=== PATIENT | female | born 2000 | race Caucasian/White ===

== ENCOUNTER 2020-08-10 12:19 | Inpatient (IN) ==
[2020-08-10] MEDS ORDERED: MoRPHine SULFATE 4 MG/ML 1 ML CARP\\VIAL IV STA (13:18)
[2020-08-10] MEDS ORDERED: fentaNYL citrate 100 MCG/2 ML VIAL IV PRN (13:18)
[2020-08-10] MEDS ORDERED: SODIUM CHLORIDE 0.9% 1000ML 1,000 ML IV STA (13:18)
[2020-08-10] MEDS ORDERED: ONDANSETRON INJ 2 MG/ML 2 ML VIAL IV STA (13:27)
--- NOTE | 2020-08-10 13:27 | Emergency Department Note ---
Impression & Plan Cholelithiasis, Abdominal pain ED Provider Note CHIEF COMPLAINT: Nausea, vomiting, upper abdominal pain HISTORY OF PRESENTING ILLNESS: This is a 19-year-old female who presents to the emergency department from the [facility] with complaint of upper abdominal pain, nausea and vomiting that started about 4 AM this morning. She states the pain is across the top of her abdomen, it is severe and constant, and she rates the pain 9/10. She notes that she was vomiting up bile, no blood. She tried to drink tianna jaylon and eat some crackers and she vomited this up. She was given Zofran this morning but this did not help her symptoms. The patient has been admitted at [facility] for suicidal attempt and self harming behavior since August 03. She denies any suicidal thoughts currently and she denies taking any medication besides what has been given to her by staff. She was not given anything for pain. She does note that she has a history of gallstones and gallbladder sludge that was diagnosed a few months ago. She states she is scheduled next week to see someone about this "to see if my gallbladder needs to come out." She denies any history of abdominal surgeries and denies being p regnant. She denies any fevers or chills, chest pain, chest tightness, shortness of breath, back pain, urinary symptoms, dizziness or syncope. REVIEW OF SYSTEMS: A complete 10 point review of systems was reviewed with the patient with pertinent positives and negatives as per history of present ill ness. All else were negative. PAST MEDICAL HISTORY: Hypertension, depression, POTS, anemia, GERD, seasonal allergies, suicidal and self-injurious behaviors, morbid obesity SOCIAL HISTORY: Lives at home, currently admitted at the [facility], she denies tobacco use ALLERGIES: Reviewed in chart and with the patient PHYSICAL EXAM: CONSTITUTIONAL: Pleasant and cooperative. Nontoxic-appearing and in no acute distress, but appears to feel unwell. Mildly dehydrated. HEENT: Normocephalic, atraumatic. PERRL, EOMI. Pharynx normal. Tacky mucous membranes. NECK: Supple, full active range of motion without discomfort. RESPIRATORY: Clear to auscultation bilaterally with no wheezing, crackles, rhonchi or stridor. Equal expansion bilaterally. CARDIOVASCULAR: Regular rate and rhythm with no murmurs, rubs or gallops. Normal peripheral perfusion. No edema. GASTROINTESTINAL: Tender to palpation in the epigastric and bilateral upper quadrants, no rebound tenderness or guarding, no definite Armendariz sign. Abdomen is otherwise nontender, soft and nondistended, obese abdomen. No palpable masses or HSM. Bowel sounds present in all quadrants. No CVA tenderness bilaterally. MUSCULOSKELETAL: Full range of motion of all joints without discomfort. INTEGUMENTARY: No rash or other significant dermatologic conditions noted. NEUROLOGIC: Alert and oriented X 4 with normal affect. Normal strength and sensation in all 4 extremities. Normal speech. Normal gait observed. ED COURSE AND MEDICAL DECISION MAKING: CC: Patient presenting with complaint of upper abdominal pain, nausea and vomiting DIFFERENTIAL DIAGNOSIS: Includes, but not limited to cholecystitis, cholelithiasis, choledocholithiasis, gastritis, peptic ulcer disease, GERD, pancreatitis, ectopic , UTI, pyelonephritis, ureteral stone, small bowel obstruction, inflammatory bowel disease, hernia, volvulus, constipation, as well as other pathologies. INTERPRETATION OF LABS: Leukocytosis, no anemia, normal platelets, no signific ant electrolyte abnormalities, normal renal function, elevated AST and ALT, T bili normal, alk phos normal, normal lipase. Serum negative. UA shows 4+ ketones and appears to be a contaminated specimen, urine culture pending. EKG: Shows normal sinus rhythm with a rate of 79 bpm, normal intervals, no ST elevation or depression, no ectopy,no significant changes when compared to previous EKG from 08/10/2020 by my interpretation. MEDICATION RECONCILIATION: I attest that I have personally reviewed the patient's current medication list. INITIAL VITAL SIGNS REVIEW: I reviewed the patient's initial vital signs and interpret them as follows: T: Afebrile; BP: Mildly hypertensive; HR: Within normal limits; RR: Within normal limits; Pulse Ox: Within normal limits on room air. MDM SUMMARY: Patient was evaluated at bedside, history and physical exam performed. Patient is alert and oriented, in no acute distress, but does appear to be uncomfortable and feel unwell. She complains of nausea but is not actively vomiting. She is afebrile and nontoxic-appearing, but does appear to be dehydrated clinically. She is tender to palpation in the entire upper abdomen, no apparent Armendariz's sign. No acute abdomen. Cardiac monitoring: An order was placed for continuous cardiac monitoring. The monitor shows a rate of 78 bpm with normal sinus rhythm. Review of the patient's notes from [facility], noting that she does also have a history of elevated LFTs and has and upcoming appointment to see gastroenterology for this, however she is not sure if she will be able to make it to the appointment because she is still inpatient at [facility]. Orders were placed for labs, serum , UA, IV fluid bolus for hydration, IV morphine for pain, IV Zofran for nausea, right upper quadrant ultrasound to evaluate for abdominal pain and nausea/vomiting. Patient discussed with Dr. Esteves, who agrees with my assessment, plan, and disposition. Labs and imaging reviewed, labs are notable for leukocytosis and elevated LFTs. Normal lipase. She is not . No definite UTI. The patient was reassessed, she continues to complain of pain and nausea. Additional orders were placed for IV Pepcid, IV Reglan, and IV Benadryl. Gallbladder ultrasound shows mildly distended gallbladder with a suspected calculus in the region of the gallbladder neck. There is no evidence of acute cholecystitis and no biliary ductal dilatation. Hepatomegaly and hepatic steatosis also noted. Patient reassessed multiple times throughout ED stay, she has remained hemodynamically stable and afebrile, she reports her pain and nausea are improved after the second set of medications, but she is still uncomfortable. Given the ultrasound findings and concern for developing gallbladder disease, I did feel the patient would benefit from admission for further evaluation of this such as a HIDA scan. [facility] the patient for admission. The patient was updated on all results and plan for admission, she was agreeable to this plan. The patient was stable at time of admission. The chart was completed utilizing [employer] voice recognition software. Grammatical errors, random word insertions, pronoun errors, and incomplete sentences are an occasional consequence of this system due to software limitations, ambient noise, and hardware issues. Any formal questions or concerns about the content, text, or information contained within the body of this dictation should be directly addressed to the nurse practitioner for clarification. Past Med/Surg History Medical History (Updated 08/10/20 @ 20:49 by ARLINE Tompkins) Depression Hypertension Morbid obesity Social History Smoking Status: Never smoker Preferred Language: French Feels Safe at Home: Yes Allergies Allergies Allergy/AdvReac Type Severity Reaction Status Date / Time nut - unspecified Allergy Severe Hives Unverified 08/10/20 13:25 mirtazapine [From Remeron] AdvReac Severe angry/viole Unverified 08/10/20 13:25 nt gabapentin AdvReac suicidal Unverified 08/10/20 13:25 Home Meds Home Medications Medication Instructions Recorded Confirmed ascorbic acid (vitamin C) [Vitamin 500 mg PO BID 08/10/20 08/10/20 C] atenolol [Tenormin] 100 mg PO QAM 08/10/20 08/10/20 diazepam [Valium] 5 mg PO BID 08/10/20 08/10/20 duloxetine [Cymbalta] 80 mg PO QAM 08/10/20 08/10/20 ferrous sulfate 325 mg PO QAM 08/10/20 08/10/20 fluticasone propionate [Flonase 2 spray INTRANASAL QAM 08/10/20 08/10/20 Allergy Relief] magnesium oxide 400 mg PO QAM 08/10/20 08/10/20 ondansetron 4 mg PO Q6H PRN 08/10/20 08/10/20 quetiapine [Seroquel] 50 mg PO QAM 08/10/20 08/10/20 quetiapine [Seroquel] 200 mg PO HS 08/10/20 08/10/20 Results & Data (ED) Vital Signs Vital Signs - 24 hr 08/10/20 12:22 08/10/20 13:37 08/10/20 13:42 Temperature 35.8 C L 36.4 C L 36.6 C Temperature Source Temporal Artery Scan Oral Oral Pulse Rate 73 Pulse Rate [Apical] 83 Pulse Rate from SpO2 Sensor Pulse Rhythm [Apical] Regular Pulse Strength [Apical] Normal Respiratory Rate 20 22 Respiratory Effort / Characteristics Non-Labored Spontaneous Non-Labored Respiratory Depth Normal Normal Respiratory Pattern Regular Regular Blood Pressure 139/86 Blood Pressure [Left Arm] 142/92 H Blood Pressure Mean 103 Blood Pressure Mean [Left Arm] 108 Blood Pressure Position [Left Arm] Sitting Pulse Oximetry 98 98 97 Oxygen Delivery Method Room Air Room Air Room Air Sepsis Recent Fever Within 48 Hours No Sepsis New/Unexplained Change in Mental Status No Sepsis Action Taken by Nursing No Action Required 08/10/20 14:30 08/10/20 14:31 08/10/20 15:34 Temperature Temperature Source Pulse Rate 92 H 93 H Pulse Rate [Apical] 91 H Pulse Rate from SpO2 Sensor 92 H 90 Pulse Rhythm [Apical] Pulse Strength [Apical] Respiratory Rate 17 21 21 Respiratory Effort / Characteristics Respiratory Depth Respiratory Pattern Blood Pressure 185/89 H 136/90 Blood Pressure [Left Arm] 185/89 H Blood Pressure Mean 121 105 Blood Pressure Mean [Left Arm] 121 Blood Pressure Position [Left Arm] Pulse Oximetry 98 98 98 Oxygen Delivery Method Room Air Sepsis Recent Fever Within 48 Hours Sepsis New/Unexplained Change in Mental Status Sepsis Action Taken by Nursing 08/10/20 16:00 08/10/20 16:30 08/10/20 17:00 Temperature Temperature Source Pulse Rate 96 H 85 93 H Pulse Rate [Apical] Pulse Rate from SpO2 Sensor 95 H 85 96 H Pulse Rhythm [Apical] Pulse Strength [Apical] Respiratory Rate 24 23 22 Respiratory Effort / Characteristics Respiratory Depth Respiratory Pattern Blood Pressure 133/89 147/85 H 153/112 H Blood Pressure [Left Arm] Blood Pressure Mean 103 105 125 Blood Pressure Mean [Left Arm] Blood Pressure Position [Left Arm] Pulse Oximetry 97 98 98 Oxygen Delivery Method Room Air Sepsis Recent Fever Within 48 Hours Sepsis New/Unexplained Change in Mental Status Sepsis Action Taken by Nursing Laboratory Data Result diagrams: 08/10/20 13:24 08/10/20 13:24 Lab Results 08/10/20 08/10/20 08/10/20 Range/Units 13:24 13:24 13:24 WBC 12.90 H (4.8-10.8) K/uL RBC 4.61 (4.2-5.4) M/uL Hgb 13.8 (12.0-16.0) g/dL Hct 41.8 (37-47) % MCV 90.7 (80-100) fL MCH 29.9 (25-34) pg MCHC 33.0 (32-36) g/dL RDW Std Deviation 46.5 H (36.4-46.3) fL RDW Coeff of Jihan 14.0 (11.5-14.5) % Plt Count 405 H (130-400) K/uL MPV 11.2 H (7.4-10.4) fL Immature Gran % (Auto) 0.2 % Neut % (Auto) 81.5 % Lymph % (Auto) 11.6 % [place] % (Auto) 6.3 % Eos % (Auto) 0.2 % Baso % (Auto) 0.2 % Neut # (Auto) 10.53 H (1.4-6.5) K/uL Lymph # (Auto) 1.49 (1.2-3.4) K/uL [place] # (Auto) 0.81 H (0.11-0.59) K/uL Eos # (Auto) 0.02 (0-0.5) K/uL Baso # (Auto) 0.02 (0-0.2) K/uL Immature Gran # (Auto) 0.03 H (0.00-0.02) K/uL Sodium 142 (136-145) mmol/L Potassium 3.6 (3.5-5.1) mmol/L Chloride 109 H (98-107) mmol/L Carbon Dioxide 24 (21-32) mmol/L Anion Gap 9.0 (3-11) BUN 8 (7-18) mg/dl Creatinine 0.71 (0.6-1.2) mg/dl Est Cr Clr Drug Dosing Not Reportable Est GFR ( Amer) 142.1 ml/min Est GFR (Non-Af Amer) 122.6 ml/min BUN/Creatinine Ratio 10.9 (10-20) Glucose 109 H (70-99) mg/dl Calcium 10.1 (8.5-10.1) mg/dl Total Bilirubin 0.7 (0.2-1) mg/dl AST 91 H (15-37) U/L ALT 160 H (12-78) U/L Alkaline Phosphatase 112 (45-117) U/L Total Protein 8.5 H (6.4-8.2) gm/dl Albumin 3.5 (3.4-5.0) gm/dl Globulin 5.0 H (2.5-4.0) gm/dl Albumin/Globulin Ratio 0.7 L (0.9-2) Lipase 80 (73-393) U/L HCG, Qual Negative (Negative) Urine Color Urine Appearance (Clear) Urine pH (4.5-7.5) Ur Specific [place] (1.000-1.030) Urine Protein (Negative) Urine Glucose (UA) (Negative) Urine Ketones (Negative) Urine Blood (Negative) Urine Nitrite (Negative) Urine Bilirubin (Negative) Urine Urobilinogen (Negative) Ur Leukocyte Esterase (Negative) Urine RBC (0-4) /hpf Urine WBC (0-5) /hpf Ur Epithelial Cells (0-5) /lpf Urine Bacteria (Negative) Urine Mucus (None Prsent) COVID-19 Eval Order SARS-CoV-2 (PCR) (Negative) 08/10/20 08/10/20 08/10/20 Range/Units 17:51 17:51 18:25 WBC (4.8-10.8) K/uL RBC (4.2-5.4) M/uL Hgb (12.0-16.0) g/dL Hct (37-47) % MCV (80-100) fL MCH (25-34) pg MCHC (32-36) g/dL RDW Std Deviation (36.4-46.3) fL RDW Coeff of Jihan (11.5-14.5) % Plt Count (130-400) K/uL MPV (7.4-10.4) fL Immature Gran % (Auto) % Neut % (Auto) % Lymph % (Auto) % [place] % (Auto) % Eos % (Auto) % Baso % (Auto) % Neut # (Auto) (1.4-6.5) K/uL Lymph # (Auto) (1.2-3.4) K/uL [place] # (Auto) (0.11-0.59) K/uL Eos # (Auto) (0-0.5) K/uL Baso # (Auto) (0-0.2) K/uL Immature Gran # (Auto) (0.00-0.02) K/uL Sodium (136-145) mmol/L Potassium (3.5-5.1) mmol/L Chloride (98-107) mmol/L Carbon Dioxide (21-32) mmol/L Anion Gap (3-11) BUN (7-18) mg/dl Creatinine (0.6-1.2) mg/dl Est Cr Clr Drug Dosing Est GFR ( Amer) ml/min Est GFR (Non-Af Amer) ml/min BUN/Creatinine Ratio (10-20) Glucose (70-99) mg/dl Calcium (8.5-10.1) mg/dl Total Bilirubin (0.2-1) mg/dl AST (15-37) U/L ALT (12-78) U/L Alkaline Phosphatase (45-117) U/L Total Protein (6.4-8.2) gm/dl Albumin (3.4-5.0) gm/dl Globulin (2.5-4.0) gm/dl Albumin/Globulin Ratio (0.9-2) Lipase (73-393) U/L HCG, Qual (Negative) Urine Color Yellow Urine Appearance Clear (Clear) Urine pH 5.5 (4.5-7.5) Ur Specific [place] >= 1.030 (1.000-1.030) Urine Protein Trace H (Negative) Urine Glucose (UA) Negative (Negative) Urine Ketones 4+ H (Negative) Urine Blood 3+ H (Negative) Urine Nitrite Negative (Negative) Urine Bilirubin Negative (Negative) Urine Urobilinogen Negative (Negative) Ur Leukocyte Esterase Negative (Negative) Urine RBC >30 H (0-4) /hpf Urine WBC >30 H (0-5) /hpf Ur Epithelial Cells >30 H (0-5) /lpf Urine Bacteria 2+ H (Negative) Urine Mucus Present A (None Prsent) COVID-19 Eval Order Covid19 at [facility] SARS-CoV-2 (PCR) NEGATIVE (Negative) Administered Medications Discontinued Medications Diphenhydramine HCl (Diphenhydramine 50 Mg/Ml Vial) 50 mg IV NOW STA Stop: 08/10/20 15:28 Last Admin: 08/10/20 15:33 Dose: 50 mg Documented by: [id number] Sodium Chloride (Nss 1000ml) 1,000 mls @ 999 mls/hr IV .Q1H1M STA Stop: 08/10/20 14:18 Last Infusion: 08/10/20 14:35 Dose: 0 mls/hr Documented by: [id number] Admin: 08/10/20 13:34 Dose: 999 mls/hr Documented by: [id number] Famotidine (Pepcid 20mg Iv Push) 20 mg in 5 mls @ 2.5 mls/min IV NOW STA Stop: 08/10/20 14:51 Last Admin: 08/10/20 15:32 Dose: 2.5 mls/min Documented by: [id number] Metoclopramide HCl (Metoclopramide Hcl Inj 5 Mg/Ml 2 Ml Vial) 10 mg IV NOW STA Stop: 08/10/20 15:28 Last Admin: 08/10/20 15:32 Dose: 10 mg Documented by: [id number] Morphine Sulfate (Morphine Sulfate 4 Mg/Ml 1 Ml Carp\\Vial) 4 mg IV NOW STA Stop: 08/10/20 13:19 Last Admin: 08/10/20 13:34 Dose: 4 mg Documented by: [id number] Ondansetron HCl (Ondansetron Inj 2 Mg/Ml 2 Ml Vial) 4 mg IV NOW STA Stop: 08/10/20 13:28 Last Admin: 08/10/20 13:34 Dose: 4 mg Documented by: [id number] Imaging Data Radiologist's Impression: Gallbladder Ultrasound 08/10/20 13:18 ULTRASOUND RIGHT UPPER QUADRANT ABDOMEN CLINICAL HISTORY: Upper abdominal pain. COMPARISON STUDY: No priors. TECHNIQUE: Real-time, grayscale, and color flow sonography of the right upper quadrant of the abdomen was performed. Images are reviewed in the transverse and longitudinal planes. FINDINGS: Liver: The liver is enlarged and demonstrates heterogeneously increased echotexture consistent with hepatic steatosis. Note that this degrades acoustic penetration of the liver. Fatty sparing is seen adjacent to gallbladder fossa. There is no intrahepatic biliary ductal dilatation. The main portal vein is patent. Gallbladder: A shadowing calculus is seen in the region the gallbladder neck. The gallbladder is mildly distended. There is no gallbladder wall thickening or pericholecystic fluid. A sonographic Armendariz's sign is reportedly absent. The common bile duct measures 0.4 cm in diameter. Pancreas: Visualized portions of the pancreatic head and body are normal in appearance. Right kidney: Survey images of the right kidney demonstrate normal size and echotexture. There is no hydronephrosis. Ascites: None. IMPRESSION: 1. The gallbladder is mildly distended and there is a shadowing calculus in the region of the gallbladder neck. There is no definitive sonographic evidence of acute cholecystitis at this time. If there is strong clinical concern for acute cholecystitis a nuclear hepatobiliary scan could be considered. 2. There is no intra or extrahepatic biliary ductal dilatation. 3. Hepatomegaly and hepatic steatosis. ACT 112: Negative or not required by law. Electronically signed by: Uriel Jaime M.D. 08/10/2020 3:30 PM Discharge Plan Visit Data Chief Complaint: Vomiting Stated Complaint: ABDOMINAL PAIN, VOMITING, NAUSEA ED Provider: Lexa Esteves ED Midlevel Provider: Sonal Sterling Discharge Problem: Cholelithiasis, Abdominal pain Patient Disposition: Admitted As Inpatient Condition: Good Forms Stand Alone Forms: My [facility] Prescriptions Prescriptions: No Action quetiapine [Seroquel] 200 mg Tablet 200 mg PO HS RF: 0 atenolol [Tenormin] 25 mg Tablet 100 mg PO QAM RF: 0 ascorbic acid (vitamin C) [Vitamin C] 500 mg Tablet 500 mg PO BID RF: 0 ferrous sulfate 325 mg (65 mg iron) Tablet,Delayed Release (Dr/Ec) 325 mg PO QAM RF: 0 ondansetron 4 mg Tablet,Disintegrating 4 mg PO Q6H PRN (Reason: Nausea And Vomiting) RF: 0 fluticasone propionate [Flonase Allergy Relief] 50 mcg/actuation [place],S uspension 2 spray INTRANASAL QAM RF: 0 diazepam [Valium] 5 mg Tablet 5 mg PO BID RF: 0 duloxetine [Cymbalta] 20 mg Capsule,Delayed Release(Dr/Ec) 80 mg PO QAM RF: 0 quetiapine [Seroquel] 50 mg Tablet 50 mg PO QAM RF: 0 magnesium oxide 400 mg magnesium Tablet 400 mg PO QAM RF: 0 Referrals Referrals: Selam Casillas [Primary Care Provider] - Discharge Problem: Cholelithiasis Qualifiers: Cholelithiasis location: gallbladder Cholecystitis presence: without cholecystitis Biliary obstruction: without biliary obstruction Qualified Cod e(s): K80.20 - Calculus of gallbladder without cholecystitis without obstruction Abdominal pain Qualifiers: Abdominal location: epigastric Qualified Code(s): R10.13 - Epigastric pain
[2020-08-10 13:34] LABS: Basophils # (auto) 0.02 K/uL (0-0.2); Basophils % (auto) 0.2 %; Eosinophils # (auto) 0.02 K/uL (0-0.5); Eosinophils % (auto) 0.2 %; Hematocrit (blood only) 41.8 % (37-47); Hemoglobin 13.8 g/dL (12.0-16.0); Immature Granulocytes # (auto) 0.03 K/uL (0.00-0.02); Immature Granulocytes % (auto) 0.2 %; Lymphocytes # (auto) 1.49 K/uL (1.2-3.4); Lymphocytes % (auto) 11.6 %; Mean Corpuscular Hemoglobin 29.9 pg (25-34); Mean Corpuscular Volume 90.7 fL (80-100); Mean Platelet Volume 11.2 fL (7.4-10.4); Monocytes # (auto) 0.81 K/uL (0.11-0.59); Monocytes % (auto) 6.3 %; Neutrophils # (auto) 10.53 K/uL (1.4-6.5); Neutrophils % (auto) 81.5 %; Platelet Count 405 K/uL (130-400); RDW Standard Deviation 46.5 fL (36.4-46.3); Red Blood Count 4.61 M/uL (4.2-5.4)
[2020-08-10 13:56] LABS: Alanine Aminotransferase 160 U/L (12-78); Albumin Level 3.5 gm/dl (3.4-5.0); Aspartate Aminotransferase 91 U/L (15-37); BUN Creatinine Ratio 10.9 (10-20); Blood Urea Nitrogen 8 mg/dl (7-18); Calcium 10.1 mg/dl (8.5-10.1); Carbon Dioxide 24 mmol/L (21-32); Chloride 109 mmol/L (98-107); Est GFR (African American) 142.1 ml/min; Est GFR (Non-African American) 122.6 ml/min; Glucose 109 mg/dl (70-99); Lipase 80 U/L (73-393); Potassium 3.6 mmol/L (3.5-5.1); Sodium 142 mmol/L (136-145)
[2020-08-10 13:59] LABS: Albumin Globulin Ratio 0.7 (0.9-2); Alkaline Phosphatase 112 U/L (45-117); Bilirubin,Total 0.7 mg/dl (0.2-1); Total Protein 8.5 gm/dl (6.4-8.2)
[2020-08-10 14:12] LABS: Pregnancy Test, Serum Negative (Negative)
[2020-08-10] MEDS ORDERED: FAMOTIDINE 20MG IV PUSH 20 MG/5 ML SYR IV STA (14:50)
[2020-08-10] MEDS ORDERED: METOCLOPRAMIDE HCL INJ 5 MG/ML 2 ML VIAL IV STA (15:27)
[2020-08-10] MEDS ORDERED: diphenhydrAMINE 50 MG/ML VIAL IV STA (15:27)
--- NOTE | 2020-08-10 15:32 | Electrocardiogram Report ---
Test Reason : Blood Pressure : / mmHG Vent. Rate : 079 BPM Atrial Rate : 079 BPM P-R Int : 172 ms QRS Dur : 076 ms QT Int : 390 ms P-R-T Axes : 006 015 021 degrees QTc Int : 447 ms Normal sinus rhythm Nonspecific T wave abnormality Abnormal ECG When compared with ECG of 10-AUG-2020 13:36, (unconfirmed) No significant change was found Confirmed by Kevin Kam ([id number]) on 08/10/2020 3:31:55 PM Referred By: Confirmed By:Kevin Kam
--- NOTE | 2020-08-10 15:32 | Ultrasound Report ---
ULTRASOUND RIGHT UPPER QUADRANT ABDOMEN CLINICAL HISTORY: Upper abdominal pain. COMPARISON STUDY: No priors. TECHNIQUE: Real-time, grayscale, and color flow sonography of the right upper quadrant of the abdomen was performed. Images are reviewed in the transverse and longitudinal planes. FINDINGS: Liver: The liver is enlarged and demonstrates heterogeneously increased echotexture consistent with h epatic steatosis. Note that this degrades acoustic penetration of the liver. Fatty sparing is seen ad jacent to gallbladder fossa. There is no intrahepatic biliary ductal dilatation. The main portal vein is patent. Gallbladder: A shadowing calculus is seen in the region the gallbladder neck. The gallbladder is mild ly distended. There is no gallbladder wall thickening or pericholecystic fluid. A sonographic Armendariz' s sign is reportedly absent. The common bile duct measures 0.4 cm in diameter. Pancreas: Visualized portions of the pancreatic head and body are normal in appearance. Right kidney: Survey images of the right kidney demonstrate normal size and echotexture. There is no hydronephrosis. Ascites: None. IMPRESSION: 1. The gallbladder is mildly distended and there is a shadowing calculus in the region of the gallbla dder neck. There is no definitive sonographic evidence of acute cholecystitis at this time. If there is strong clinical concern for acute cholecystitis a nuclear hepatobiliary scan could be considered. 2. There is no intra or extrahepatic biliary ductal dilatation. 3. Hepatomegaly and hepatic steatosis. ACT 112: Negative or not required by law. Electronically signed by: Uriel Jaime M.D. 08/10/2020 3:30 PM
--- NOTE | 2020-08-10 16:58 | History & Physical Report ---
Date of Service August 10, 2020 Assessment & Plan (1) Cholelithiasis: Patient's history, lab work, and ultrasound suggest possible cholecystitis. Patient does have a calculus in her gallbladder neck with some distention on ultrasound Place patient in nonmonitored observation Will order a HIDA scan Will make n.p.o. tonight, consider advancing diet slowly depending on course Consult general surgery for evaluation, may require elective cholecystectomy depending on results (2) Hypertension: Patient's blood pressure is mildly elevated Continue atenolol as per outpatient dosing (3) Depression: Patient is on multiple psych meds, including Seroquel, Cymbalta, and Valium. We will continue these as inpatient Patient at this time seems calm with no acute psychiatric issues. Per exam, I suspect she has a history of self-harm. I will consider psych consultation if patient has acute psychiatric issues during her hospitalization here (4) Morbid obesity: History of Present Illness Chief Complaint: Abdominal pain Primary Care Provider: Selam Casillas This is a 19-year-old female with past medical history of hypertension, morbid obesity, depression with a suicide attempt that presents from the [facility] complaining of abdominal pain. Patient is decent historian, and is accompanied by a traveling sales representative from the [facility]. Patient tells me that she has had abdominal pain all day. This is bilateral upper quadrants, left worse than right. She is also had nausea vomiting and has not been able to tolerate any food or liquids since approximate 4 AM. She denies any chest pain or shortness of breath. She has had no further vomiting since she stopped trying to take p.o.'s. She was given Zofran earlier which did not help. Per documentation, patient had a history of a gallstone/gallbladder sludge and was previously scheduled to see someone for elective cholecystectomy but this not occur secondary to her psychiatric issues. At time of evaluation, the patient is a very flat affect does not appear to be in any distress. Allergies Allergy/AdvReac Type Severity Reaction Status Date / Time nut - unspecified Allergy Severe Hives Unverified 08/10/20 13:25 mirtazapine [From Remeron] AdvReac Severe angry/viole Unverified 08/10/20 13:25 nt gabapentin AdvReac suicidal Unverified 08/10/20 13:25 Home Medications Medication Instructions Recorded Confirmed Type ascorbic acid (vitamin C) [Vitamin 500 mg PO BID 08/10/20 08/10/20 History C] atenolol [Tenormin] 100 mg PO QAM 08/10/20 08/10/20 History diazepam [Valium] 5 mg PO BID 08/10/20 08/10/20 History duloxetine [Cymbalta] 80 mg PO QAM 08/10/20 08/10/20 History ferrous sulfate 325 mg PO QAM 08/10/20 08/10/20 History fluticasone propionate [Flonase 2 spray INTRANASAL QAM 08/10/20 08/10/20 History Allergy Relief] magnesium oxide 400 mg PO QAM 08/10/20 08/10/20 History ondansetron 4 mg PO Q6H PRN 08/10/20 08/10/20 History quetiapine [Seroquel] 50 mg PO QAM 08/10/20 08/10/20 History quetiapine [Seroquel] 200 mg PO HS 08/10/20 08/10/20 History Past Med/Surg History Medical History (Updated 08/10/20 @ 17:03 by Blas Mauro DO) Depression Hypertension Morbid obesity Social History Smoking Status: Never smoker Preferred Language: Armenian Feels Safe at Home: Yes Review of Systems Constitutional: + anorexia; no fever, no chills, no weakness, no weight loss and no weight gain Eyes: as per Subjective / HPI Respiratory: no cough, no chest congestion, no dyspnea and no dyspnea on exertion Cardiovascular: no chest pain, no orthopnea, no palpitations, no lightheadedness and no edema Gastrointestinal: + abdominal pain, + nausea and + vomiting; no heartburn, no coffee ground emesis, no hematemesis, no constipation and no diarrhea/loose stools Genitourinary: no dysuria, no difficulty urinating, no urinary frequency, no urinary hesitancy, no urinary urgency and no flank pain Musculoskeletal: no back pain, no neck pain, no joint pain, no stiffness and no myalgia Integumentary: no rash Neurologic: no gait abnormality, no unsteadiness, no falls and no generalized weakness Physical Exam Constitutional: cooperative and comfortable; no acute distress Neck: trachea midline, no thyromegaly Respiratory: normal respiratory effort Auscultation: lungs clear to auscultation bilaterally; no crackles, no rales, no rhonchi and no wheezes Cardiovascular: Rate/Rhythm: regular rate and regular rhythm Heart Sounds: normal S1, normal S2 and + murmur Gastrointestinal (Abdomen): Inspection/Auscultation: abdomen normal to inspection and + hypoactive bowel sounds Percussion/Palpation: + abdomen tender (b/l upper quad, L>R. no r/g/r) and abdomen soft; no guarding, abdomen not rigid and no hepatosplenomegaly Skin: no rashes, warm and dry Multiple linear abrasions on upper arm, suggest self-harm. No fresh wounds, appear to been cared for at facility Results & Data Results & Data ([facility]) Vital Signs (Past 12 Hours) Vital Signs Temp Pulse Pulse Resp BP BP Pulse Ox 08/10/20 16:30 85 23 147/85 H 98 08/10/20 16:00 96 H 24 133/89 97 08/10/20 15:34 93 H 21 136/90 98 08/10/20 14:31 92 H 21 185/89 H 98 08/10/20 14:30 91 H 17 185/89 H 98 08/10/20 13:42 36.6 C 83 22 142/92 H 97 08/10/20 13:37 36.4 C L 98 08/10/20 12:22 35.8 C L 73 20 139/86 98 Diagnostic Findings ULTRASOUND RIGHT UPPER QUADRANT ABDOMEN CLINICAL HISTORY: Upper abdominal pain. COMPARISON STUDY: No priors. TECHNIQUE: Real-time, grayscale, and color flow sonography of the right upper quadrant of the abdomen was performed. Images are reviewed in the transverse and longitudinal planes. FINDINGS: Liver: The liver is enlarged and demonstrates heterogeneously increased echotexture consistent with hepatic steatosis. Note that this degrades acoustic penetration of the liver. Fatty sparing is seen adjacent to gallbladder fossa. There is no intrahepatic biliary ductal dilatation. The main portal vein is patent. Gallbladder: A shadowing calculus is seen in the region the gallbladder neck. The gallbladder is mildly distended. There is no gallbladder wall thickening or pericholecystic fluid. A sonographic Armendariz's sign is reportedly absent. The common bile duct measures 0.4 cm in diameter. Pancreas: Visualized portions of the pancreatic head and body are normal in appearance. Right kidney: Survey images of the right kidney demonstrate normal size and echotexture. There is no hydronephrosis. Ascites: None. IMPRESSION: 1. The gallbladder is mildly distended and there is a shadowing calculus in the region of the gallbladder neck. There is no definitive sonographic evidence of acute cholecystitis at this time. If there is strong clinical concern for acute cholecystitis a nuclear hepatobiliary scan could be considered. 2. There is no intra or extrahepatic biliary ductal dilatation. 3. Hepatomegaly and hepatic steatosis. PG Care Time/CCT Total # of Minutes Spent Total Time Spent with Patient: Total time spent is greater than 50% in coordination of care (as documented) at patient's floor/unit and/or counseling patient: Coding Level of Care Code 16723 OBS Care - Level 3 Diagnoses Cholelithiasis K80.20 Hypertension I10 Depression F32.9 Morbid obesity E66.01
[2020-08-10 18:46] LABS: Appearance Urine Clear (Clear); Bilirubin Urine Negative (Negative); Blood Urine 3+ (Negative); Color Urine Yellow; Glucose Urine UA Negative (Negative); Ketones Urine 4+ (Negative); Leukocyte Esterase Urine Negative (Negative); Nitrite Urine Negative (Negative); Protein Urine Trace (Negative); Specific Gravity Urine >= 1.030 (1.000-1.030); Urobilinogen Urine Negative (Negative); pH Urine 5.5 (4.5-7.5)
[2020-08-10 19:05] LABS: Bacteria Urine 2+ (Negative); Epithelial Cell Urine >30 /lpf (0-5); Mucus Urine Present (None Prsent); RBC Urine >30 /hpf (0-4); WBC Urine >30 /hpf (0-5)
[2020-08-10] MEDS ORDERED: ACETAMINOPHEN 325 MG TAB PO PRN (21:41)
[2020-08-10] MEDS ORDERED: ONDANSETRON INJ 2 MG/ML 2 ML VIAL IV PRN (21:41)
--- NOTE | 2020-08-10 23:07 | Surgery Consultation ---
Date of Consultation August 10, 2020 Assessment & Plan (1) Cholelithiasis: Patient is admitted on the hospitalist service. Current plans are as follows Analgesics are in place Antiemetics are in place Plans are in place to follow serial laboratories Patient will be kept on n.p.o. status for the present time Patient is noted to have likely gallstones on her gallbladder ultrasound. As there is no definitive evidence of cholecystitis on ultrasound a HIDA scan has been ordered and is currently pending Additional recommendations from surgery will be made once patient's HIDA scan has been completed Dr. Leong with plan above. Saw patient in her room she appears to be stable Does appear she has at least biliary colic and possible mild acute cholecystitis, HIDA scan is pending We discussed laparoscopic cholecystectomy and possible open cholecystectomy, she does wish to proceed when appropriate We will check her results of the HIDA scan and also medical work-up for her cardiac issues possible surgery tomorrow (2) POTS (postural orthostatic tachycardia syndrome): History of Present Illness Attending Physician: Blas Mauro, History of Present Illness This is a 19-year-old female who is currently receiving treatment at the [facility] secondary to a suicide attempt. Patient notes that she cut herself on her forearms with a sharp blade along with overdosing on Klonopin. Patient was transferred from the [facility] to [facility] emergency department secondary to abdominal pain. Patient notes that she has been having intermittent abdominal pain for several months located in the epigastric area and right upper quadrant. She feels as though the pain is worse after she eats a meal. Prior to her admission to the [facility] the patient notes that she did have plans to undergo cholecystectomy at [facility] in [place], [place], but postponed the surgery due to the Covid pandemic. Today the patient said that she developed similar abdominal pain that was greatest in the right upper quadrant. She noted the pain was more severe than it has been in the past and she had associated nausea vomiting. She denies any fevers, shakes, chills. She did not note any modifying factors of her pain and said the pain did not radiate. Because of her symptoms she was evaluated in the emergency department [facility]. In the emergency department [facility] the patient did have labs and imaging which I reviewed. A gallbladder ultrasound showed that she had a mildly distended gallbladder with shadowing consistent with gallstones in the region of the gallbladder neck. Gallbladder is noted to be mildly distended on this study, however there is no gallbladder wall thickening or pericholecystic fluid. There is no dilatation of the biliary ductal system. She has undergone labs including a CBC were white blood cell count was elevated 12.9. Her hemoglobin and hematocrit are normal. Platelet count was 405,000. Chemistry profile revealed her sodium, potassium, BUN, and creatinine were normal. Patient not have any elevation of her bilirubin however she did have an elevated AST at 91 and an elevated ALT at 160. Her alkaline phosphatase was 112. Patient's lipase was within the normal range and she had a test that was negative. Urinalysis did show greater than 30 white blood cells per high- power field along with 2+ bacteria. Covid test was performed and was noted to be negative. I did asked the patient about her planned cholecystectomy and as noted above she has postponed this due to the Covid pandemic. I asked the patient about additional medical problems besides her psychiatric issues and she says she does suffer from POTS syndrome for which she takes atenolol 100 mg daily. She says that this problem affects her on almost a daily basis. At the time of my interview the patient was resting in bed and she was pain-free at the time of my interview. Was in no distress. Allergies Allergy/AdvReac Type Severity Reaction Status Date / Time nut - unspecified Allergy Severe Hives Unverified 08/10/20 13:25 mirtazapine [From Remeron] AdvReac Severe angry/viole Unverified 08/10/20 13:25 nt gabapentin AdvReac suicidal Unverified 08/10/20 13:25 Home Medications Medication Instructions Recorded Confirmed Type ascorbic acid (vitamin C) [Vitamin 500 mg PO BID 08/10/20 08/10/20 History C] atenolol [Tenormin] 100 mg PO QAM 08/10/20 08/10/20 History diazepam [Valium] 5 mg PO BID 08/10/20 08/10/20 History duloxetine [Cymbalta] 80 mg PO QAM 08/10/20 08/10/20 History ferrous sulfate 325 mg PO QAM 08/10/20 08/10/20 History fluticasone propionate [Flonase 2 spray INTRANASAL QAM 08/10/20 08/10/20 History Allergy Relief] magnesium oxide 400 mg PO QAM 08/10/20 08/10/20 History ondansetron 4 mg PO Q6H PRN 08/10/20 08/10/20 History quetiapine [Seroquel] 50 mg PO QAM 08/10/20 08/10/20 History quetiapine [Seroquel] 200 mg PO HS 08/10/20 08/10/20 History Patient History Medical History (Updated 08/10/20 @ 23:17 by Gilson Rose PA-C) Depression Hypertension Morbid obesity POTS (postural orthostatic tachycardia syndrome) Social History Smoking Status: Never smoker Hx Alcohol Use: No Hx Substance Use: No Preferred Language: Hebrew Communication Ability: Effective Lab Manager Required: No Beliefs That Will Affect Care: [employer] Current Living Situation: Parent Current Living Situation Comment: Lives at home with mother Feels Safe at Home: Yes Safety Concerns: Feels Safe At This Time Assistive Devices: None Review of Systems Constitutional: no fever Eyes: no diplopia Ear, Nose, Mouth, Throat: no ear pain Respiratory: no cough and no dyspnea Cardiovascular: + palpitations and + problem reported (Pots syndrome); no chest pain Gastrointestinal: + abdominal pain, + nausea and + vomiting Patient reports alternating episodes of constipation and diarrhea Genitourinary: no dysuria Musculoskeletal: no back pain Integumentary: no rash Neurologic: no localized weakness Psychiatric: + depression Physical Exam Constitutional: well developed, well nourished and + obese; no acute distress Eyes: no conjunctival abnormality Wears glasses ENMT: Ears: no hearing impairment Neck: trachea midline Respiratory: normal respiratory effort; no respiratory distress and no labored breathing Breath sounds are decreased at bases likely due to body habitus Cardiovascular: Rate/Rhythm: regular rate and regular rhythm Gastrointestinal (Abdomen): Abdomen is rotund but soft. There is no rebound tenderness or guarding. There is pain with deep palpation in the right upper quadrant. There is no epigastric pain. Armendariz sign is negative. Musculoskeletal: No calf tenderness. The patient is noted to have several excoriations noted on her left forearm from suicide attempt. Skin: no rashes, warm and dry Neurologic: moves all extremities Psychiatric: Orientation: alert and oriented x 3 Affect: + flat affect Results & Data ([place]) Vital Signs (Past 12 Hours) Vital Signs Temp Pulse Pulse Resp BP BP Pulse Ox 08/10/20 21:42 36.4 C L 98 H 18 134/85 97 08/10/20 21:06 102 H 18 179/94 H 98 08/10/20 17:00 93 H 22 153/112 H 98 08/10/20 16:30 85 23 147/85 H 98 08/10/20 16:00 96 H 24 133/89 97 08/10/20 15:34 93 H 21 136/90 98 08/10/20 14:31 92 H 21 185/89 H 98 08/10/20 14:30 91 H 17 185/89 H 98 08/10/20 13:42 36.6 C 83 22 142/92 H 97 08/10/20 13:37 36.4 C L 98 08/10/20 12:22 35.8 C L 73 20 139/86 98 PG Care Time/CCT Total # of Minutes Spent Total Time Spent with Patient: Total time spent is greater than 50% in coordination of care (as documented) at patient's floor/unit and/or counseling patient: Coding Level of Care Code 97175 Inpt Consult Level 5 Diagnoses Cholelithiasis K80.20 Biliary obstruction: without biliary obstruction Cholecystitis presence: without cholecystitis Cholelithiasis location: gallbladder POTS (postural orthostatic tachycardia syndrome) I49.8 (1) Cholelithiasis Biliary obstruction: without biliary obstruction Cholecystitis presence: without cholecystitis Cholelithiasis location: gallbladder Qualified Code(s): K80.20 - Calculus of gallbladder without cholecystitis without obstruction
[2020-08-10] MEDS: SODIUM CHLORIDE 0.9% 1000ML 1,000 ML IV SCH (23:28)
[2020-08-10] MEDS: ASCORBIC ACID 500 MG TAB PO SCH (23:34)
[2020-08-10] MEDS: QUEtiapine FUMARATE 200 MG TAB PO SCH (23:34)
[2020-08-10] MEDS: diazePAM 5 MG TABLET PO SCH (23:36)
[2020-08-11] MEDS: HYDROmorphone INJ 0.5 MG/0.5 ML SYR IV PRN ×2 (00:13→06:25)
[2020-08-11 06:48] LABS: Basophils # (auto) 0.02 K/uL (0-0.2); Basophils % (auto) 0.2 %; Eosinophils # (auto) 0.13 K/uL (0-0.5); Eosinophils % (auto) 1.3 %; Hematocrit (blood only) 41.2 % (37-47); Hemoglobin 13.1 g/dL (12.0-16.0); Immature Granulocytes # (auto) 0.02 K/uL (0.00-0.02); Immature Granulocytes % (auto) 0.2 %; Lymphocytes # (auto) 1.68 K/uL (1.2-3.4); Lymphocytes % (auto) 16.6 %; Mean Corpuscular Hemoglobin 29.5 pg (25-34); Mean Corpuscular Hgb Conc 31.8 g/dL (32-36); Mean Corpuscular Volume 92.8 fL (80-100); Mean Platelet Volume 10.9 fL (7.4-10.4); Monocytes # (auto) 1.29 K/uL (0.11-0.59); Monocytes % (auto) 12.8 %; Neutrophils # (auto) 6.97 K/uL (1.4-6.5); Neutrophils % (auto) 68.9 %; Platelet Count 333 K/uL (130-400); RDW Coefficient of Variation 14.1 % (11.5-14.5); RDW Standard Deviation 48.1 fL (36.4-46.3); Red Blood Count 4.44 M/uL (4.2-5.4); White Blood Count 10.11 K/uL (4.8-10.8)
[2020-08-11 07:34] LABS: BUN Creatinine Ratio 10.3 (10-20); Creatinine Clr Calc Pharmacy 184.5 ml/min; Est GFR (African American) 145.9 ml/min; Est GFR (Non-African American) 125.9 ml/min; Magnesium 2.1 mg/dl (1.8-2.4); Potassium 3.1 mmol/L (3.5-5.1)
[2020-08-11 07:36] LABS: Albumin Globulin Ratio 0.7 (0.9-2); Bilirubin,Total 0.7 mg/dl (0.2-1); Globulin 4.4 gm/dl (2.5-4.0); Total Protein 7.4 gm/dl (6.4-8.2)
[2020-08-11] MEDS: FLUTICASONE PROPIONATE NA SPR 16 GM BTL SCH (08:29)
[2020-08-11] MEDS: MAGNESIUM OXIDE 400 MG TAB PO SCH (08:30)
[2020-08-11] MEDS: FERROUS SULFATE 325 MG TAB PO SCH (08:30)
[2020-08-11] MEDS: DULoxetine HCL 20 MG CAP PO SCH (08:30)
[2020-08-11] MEDS: ATENOLOL 50 MG TABLET PO SCH (08:30)
[2020-08-11] MEDS: ASCORBIC ACID 500 MG TAB PO SCH (08:30)
[2020-08-11] MEDS: QUEtiapine FUMARATE 25 MG TABLET PO SCH (08:30)
[2020-08-11] MEDS: diazePAM 5 MG TABLET PO SCH ×2 (08:32→21:42)
[2020-08-11] MEDS: SODIUM CHLORIDE 0.9% 1000ML 1,000 ML IV SCH ×3 (08:35→17:40)
[2020-08-11] MEDS ORDERED: POTASSIUM CHLORIDE CRTAB 20 MEQ TABCR PO STA (08:40)
--- NOTE | 2020-08-11 08:41 | Hospitalist Progress Note ---
Date of Service August 11, 2020 Assessment & Plan (1) Cholelithiasis: Patient's history, lab work, and ultrasound suggest possible cholecystitis. Patient does have a calculus in her gallbladder neck with some distention on ultrasound General surgery on consult --> patient still wishes to proceed with cholecystectomy regardless of HIDA results Currently NPO HIDA scan pending Lipase 80, TB wnl 0.7, ALP 101 wnl AST/ALT 65/123. Will order Hepatitis panel as well but these are improved from a dmission (hx prior elevations and to see surgeon later in the week when she was admitted from the [facility]) Famotidine 20mg IVP daily K 3.1-- ordered 40meq replacement. Mag wnl Continue to monitor (2) Abnormal finding on urinalysis: UA with 4+ ketones, 3+ blood, >30 RBC, >30 WBC, >30 epi, 2+ bacteria. ?stones ?psc given family hx cirrhosis without etoh use Place on Ceftriaxone for now while urine cx pending given n/v and abd discomfort on admission Urine cx pin-point growth, re-incubating --> follow Beta-hydroxybutyrate elevated 5 No hx DM, check A1c in AM Suspect some degree of starvation ketosis given lack of appetite/nausea/vomiting -- no Kussmaul breathing/tachypnea/etc on examination to suggest DKA. 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 Updated home med rec continue to monitor (6) Depression: Patient is on multiple psych meds, including Seroquel, Cymbalta, and Valium. We will continue these as inpatient. 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 Per exam, I suspect she has a history of self-harm. Consider psych consultation if patient has acute psychiatric issues during her hospitalization here Per conversation with mother during inpatient stay, agreeable to take patient home at this time at discharge when medically stable DVT Prophylaxis SCDs Chemical proph held in case of OR -- frequent ambulation encouraged Dispo: likely to be NPO after midnight -- HIDA scan pending will change to full admission continued inpatient stay From [facility] and will need transportation arranged at discharge. Per mother, she is ok with taking patient home at time of discharge. Psych liaison consulted and following Admission and Anticipated Discharge Date Admission Date: August 10, 2020 Subjective Patient evaluated around lunch. Resting comfortable in the bed. Pain about the same as yesterday, upper abdominal discomfort, moreso on the right on examination. Has some epigastric discomfort and typically takes omeprazole as an outpatient. Will order IV famotidine for now and then daily PO as she remains NPO for HIDA. She does have concerns about fatty liver disease as she has had an aunt with cirrhosis, non-alcoholic related. She does not take any ibuprofen or tylenol due to this. Hx on OCP. No fever, chills, chest pain, shortness of breath, nausea or vomiting, dysuria. She is very interesting in getting water if possible after her scan if surgery not to be until tomorrow. Questions/concerns addressed at this time. Review of Systems Review of Systems: All systems reviewed & are unremarkable except as noted in HPI & below Physical Exam Constitutional: + obese, cooperative and comfortable; no acute distress Eyes: + anicteric sclerae ENMT: Ears: no hearing impairment Neck: trachea midline, no thyromegaly Respiratory: normal respiratory effort Auscultation: lungs clear to auscultation bilaterally and + diminished lung sounds; no crackles, no rales, no rhonchi and no wheezes Cardiovascular: Rate/Rhythm: regular rate and regular rhythm Heart Sounds: normal S1, normal S2 and + murmur Gastrointestinal (Abdomen): Inspection/Auscultation: abdomen normal to inspection and + hypoactive bowel sounds Percussion/Palpation: + abdomen tender (b/l upper quad, R>L) and abdomen soft; no guarding, abdomen not rigid and no hepatosplenomegaly Musculoskeletal: no cyanosis or clubbing, extremities motor strength 5/5 Skin: no rashes, warm and dry multiple excoriations from cut lgeason to hands/arms Neurologic: PERRL, EOMI, accommodation nl, no face palsy, no dysarthria Psychiatric: Orientation: alert and oriented x 3 Results & Data Results & Data ([facility]) Vital Signs (Past 12 Hours) Vital Signs Temp Pulse Pulse Resp BP Pulse Ox 08/11/20 07:14 36.9 C 122 H 20 117/78 92 08/10/20 21:42 36.4 C L 98 H 18 134/85 97 08/10/20 21:06 102 H 18 179/94 H 98 Laboratory Results 08/11/20 08/11/20 08/11/20 Range/Units 10:12 10:12 10:12 WBC (4.8-10.8) K/uL RBC (4.2-5.4) M/uL Hgb (12.0-16.0) g/dL Hct (37-47) % MCV (80-100) fL MCH (25-34) pg MCHC (32-36) g/dL RDW Std Deviation (36.4-46.3) fL RDW Coeff of Jihan (11.5-14.5) % Plt Count (130-400) K/uL MPV (7.4-10.4) fL Immature Gran % (Auto) % Neut % (Auto) % Lymph % (Auto) % [place] % (Auto) % Eos % (Auto) % Baso % (Auto) % Neut # (Auto) (1.4-6.5) K/uL Lymph # (Auto) (1.2-3.4) K/uL [place] # (Auto) (0.11-0.59) K/uL Eos # (Auto) (0-0.5) K/uL Baso # (Auto) (0-0.2) K/uL Immature Gran # (Auto) (0.00-0.02) K/uL Sodium (136-145) mmol/L Potassium (3.5-5.1) mmol/L Chloride (98-107) mmol/L Carbon Dioxide (21-32) mmol/L Anion Gap (3-11) BUN (7-18) mg/dl Creatinine (0.6-1.2) mg/dl Est Cr Clr Drug Dosing Est GFR ( Amer) ml/min Est GFR (Non-Af Amer) ml/min BUN/Creatinine Ratio (10-20) Glucose (70-99) mg/dl Calcium (8.5-10.1) mg/dl Magnesium (1.8-2.4) mg/dl Total Bilirubin (0.2-1) mg/dl AST (15-37) U/L ALT (12-78) U/L Alkaline Phosphatase (45-117) U/L Total Protein (6.4-8.2) gm/dl Albumin (3.4-5.0) gm/dl Globulin (2.5-4.0) gm/dl Albumin/Globulin Ratio (0.9-2) Lipase (73-393) U/L Beta-Hydroxybutyric Acd 5.04 H (0.2-2.81) mg/dl HCG, Qual (Negative) Urine Color Urine Appearance (Clear) Urine pH (4.5-7.5) Ur Specific [place] (1.000-1.030) Urine Protein (Negative) Urine Glucose (UA) (Negative) Urine Ketones (Negative) Urine Blood (Negative) Urine Nitrite (Negative) Urine Bilirubin (Negative) Urine Urobilinogen (Negative) Ur Leukocyte Esterase (Negative) Urine RBC (0-4) /hpf Urine WBC (0-5) /hpf Ur Epithelial Cells (0-5) /lpf Urine Bacteria (Negative) Urine Mucus (None Prsent) COVID-19 Eval Order SARS-CoV-2 (PCR) (Negative) Hepatitis A IgM Ab Pending Hep Bs Antigen Neg (Neg) Hep B Core IgM Ab Pending Hepatitis C Antibody Neg (Neg) 08/11/20 08/11/20 08/10/20 Range/Units 06:22 06:22 18:25 WBC 10.11 (4.8-10.8) K/uL RBC 4.44 (4.2-5.4) M/uL Hgb 13.1 (12.0-16.0) g/dL Hct 41.2 (37-47) % MCV 92.8 (80-100) fL MCH 29.5 (25-34) pg MCHC 31.8 L (32-36) g/dL RDW Std Deviation 48.1 H (36.4-46.3) fL RDW Coeff of Jihan 14.1 (11.5-14.5) % Plt Count 333 (130-400) K/uL MPV 10.9 H (7.4-10.4) fL Immature Gran % (Auto) 0.2 % Neut % (Auto) 68.9 % Lymph % (Auto) 16.6 % [place] % (Auto) 12.8 % Eos % (Auto) 1.3 % Baso % (Auto) 0.2 % Neut # (Auto) 6.97 H (1.4-6.5) K/uL Lymph # (Auto) 1.68 (1.2-3.4) K/uL [place] # (Auto) 1.29 H (0.11-0.59) K/uL Eos # (Auto) 0.13 (0-0.5) K/uL Baso # (Auto) 0.02 (0-0.2) K/uL Immature Gran # (Auto) 0.02 (0.00-0.02) K/uL Sodium 142 (136-145) mmol/L Potassium 3.1 L (3.5-5.1) mmol/L Chloride 109 H (98-107) mmol/L Carbon Dioxide 29 (21-32) mmol/L Anion Gap 4.0 (3-11) BUN 7 (7-18) mg/dl Creatinine 0.68 (0.6-1.2) mg/dl Est Cr Clr Drug Dosing 184.5 Est GFR ( Amer) 145.9 ml/min Est GFR (Non-Af Amer) 125.9 ml/min BUN/Creatinine Ratio 10.3 (10-20) Glucose 96 (70-99) mg/dl Calcium 9.0 (8.5-10.1) mg/dl Magnesium 2.1 (1.8-2.4) mg/dl Total Bilirubin 0.7 (0.2-1) mg/dl AST 65 H (15-37) U/L ALT 123 H (12-78) U/L Alkaline Phosphatase 101 (45-117) U/L Total Protein 7.4 (6.4-8.2) gm/dl Albumin 3.0 L (3.4-5.0) gm/dl Globulin 4.4 H (2.5-4.0) gm/dl Albumin/Globulin Ratio 0.7 L (0.9-2) Lipase (73-393) U/L Beta-Hydroxybutyric Acd (0.2-2.81) mg/dl HCG, Qual (Negative) Urine Color Yellow Urine Appearance Clear (Clear) Urine pH 5.5 (4.5-7.5) Ur Specific [place] >= 1.030 (1.000-1.030) Urine Protein Trace H (Negative) Urine Glucose (UA) Negative (Negative) Urine Ketones 4+ H (Negative) Urine Blood 3+ H (Negative) Urine Nitrite Negative (Negative) Urine Bilirubin Negative (Negative) Urine Urobilinogen Negative (Negative) Ur Leukocyte Esterase Negative (Negative) Urine RBC >30 H (0-4) /hpf Urine WBC >30 H (0-5) /hpf Ur Epithelial Cells >30 H (0-5) /lpf Urine Bacteria 2+ H (Negative) Urine Mucus Present A (None Prsent) COVID-19 Eval Order SARS-CoV-2 (PCR) (Negative) Hepatitis A IgM Ab Hep Bs Antigen (Neg) Hep B Core IgM Ab Hepatitis C Antibody (Neg) 08/10/20 08/10/20 08/10/20 Range/Units 17:51 17:51 13:24 WBC (4.8-10.8) K/uL RBC (4.2-5.4) M/uL Hgb (12.0-16.0) g/dL Hct (37-47) % MCV (80-100) fL MCH (25-34) pg MCHC (32-36) g/dL RDW Std Deviation (36.4-46.3) fL RDW Coeff of Jihan (11.5-14.5) % Plt Count (130-400) K/uL MPV (7.4-10.4) fL Immature Gran % (Auto) % Neut % (Auto) % Lymph % (Auto) % [place] % (Auto) % Eos % (Auto) % Baso % (Auto) % Neut # (Auto) (1.4-6.5) K/uL Lymph # (Auto) (1.2-3.4) K/uL [place] # (Auto) (0.11-0.59) K/uL Eos # (Auto) (0-0.5) K/uL Baso # (Auto) (0-0.2) K/uL Immature Gran # (Auto) (0.00-0.02) K/uL Sodium 142 (136-145) mmol/L Potassium 3.6 (3.5-5.1) mmol/L Chloride 109 H (98-107) mmol/L Carbon Dioxide 24 (21-32) mmol/L Anion Gap 9.0 (3-11) BUN 8 (7-18) mg/dl Creatinine 0.71 (0.6-1.2) mg/dl Est Cr Clr Drug Dosing Not Reportable Est GFR ( Amer) 142.1 ml/min Est GFR (Non-Af Amer) 122.6 ml/min BUN/Creatinine Ratio 10.9 (10-20) Glucose 109 H (70-99) mg/dl Calcium 10.1 (8.5-10.1) mg/dl Magnesium (1.8-2.4) mg/dl Total Bilirubin 0.7 (0.2-1) mg/dl AST 91 H (15-37) U/L ALT 160 H (12-78) U/L Alkaline Phosphatase 112 (45-117) U/L Total Protein 8.5 H (6.4-8.2) gm/dl Albumin 3.5 (3.4-5.0) gm/dl Globulin 5.0 H (2.5-4.0) gm/dl Albumin/Globulin Ratio 0.7 L (0.9-2) Lipase 80 (73-393) U/L Beta-Hydroxybutyric Acd (0.2-2.81) mg/dl HCG, Qual (Negative) Urine Color Urine Appearance (Clear) Urine pH (4.5-7.5) Ur Specific [place] (1.000-1.030) Urine Protein (Negative) Urine Glucose (UA) (Negative) Urine Ketones (Negative) Urine Blood (Negative) Urine Nitrite (Negative) Urine Bilirubin (Negative) Urine Urobilinogen (Negative) Ur Leukocyte Esterase (Negative) Urine RBC (0-4) /hpf Urine WBC (0-5) /hpf Ur Epithelial Cells (0-5) /lpf Urine Bacteria (Negative) Urine Mucus (None Prsent) COVID-19 Eval Order Covid19 at [facility] SARS-CoV-2 (PCR) NEGATIVE (Negative) Hepatitis A IgM Ab Hep Bs Antigen (Neg) Hep B Core IgM Ab Hepatitis C Antibody (Neg) 08/10/20 08/10/20 Range/Units 13:24 13:24 WBC 12.90 H (4.8-10.8) K/uL RBC 4.61 (4.2-5.4) M/uL Hgb 13.8 (12.0-16.0) g/dL Hct 41.8 (37-47) % MCV 90.7 (80-100) fL MCH 29.9 (25-34) pg MCHC 33.0 (32-36) g/dL RDW Std Deviation 46.5 H (36.4-46.3) fL RDW Coeff of Jihan 14.0 (11.5-14.5) % Plt Count 405 H (130-400) K/uL MPV 11.2 H (7.4-10.4) fL Immature Gran % (Auto) 0.2 % Neut % (Auto) 81.5 % Lymph % (Auto) 11.6 % [place] % (Auto) 6.3 % Eos % (Auto) 0.2 % Baso % (Auto) 0.2 % Neut # (Auto) 10.53 H (1.4-6.5) K/uL Lymph # (Auto) 1.49 (1.2-3.4) K/uL [place] # (Auto) 0.81 H (0.11-0.59) K/uL Eos # (Auto) 0.02 (0-0.5) K/uL Baso # (Auto) 0.02 (0-0.2) K/uL Immature Gran # (Auto) 0.03 H (0.00-0.02) K/uL Sodium (136-145) mmol/L Potassium (3.5-5.1) mmol/L Chloride (98-107) mmol/L Carbon Dioxide (21-32) mmol/L Anion Gap (3-11) BUN (7-18) mg/dl Creatinine (0.6-1.2) mg/dl Est Cr Clr Drug Dosing Est GFR ( Amer) ml/min Est GFR (Non-Af Amer) ml/min BUN/Creatinine Ratio (10-20) Glucose (70-99) mg/dl Calcium (8.5-10.1) mg/dl Magnesium (1.8-2.4) mg/dl Total Bilirubin (0.2-1) mg/dl AST (15-37) U/L ALT (12-78) U/L Alkaline Phosphatase (45-117) U/L Total Protein (6.4-8.2) gm/dl Albumin (3.4-5.0) gm/dl Globulin (2.5-4.0) gm/dl Albumin/Globulin Ratio (0.9-2) Lipase (73-393) U/L Beta-Hydroxybutyric Acd (0.2-2.81) mg/dl HCG, Qual Negative (Negative) Urine Color Urine Appearance (Clear) Urine pH (4.5-7.5) Ur Specific [place] (1.000-1.030) Urine Protein (Negative) Urine Glucose (UA) (Negative) Urine Ketones (Negative) Urine Blood (Negative) Urine Nitrite (Negative) Urine Bilirubin (Negative) Urine Urobilinogen (Negative) Ur Leukocyte Esterase (Negative) Urine RBC (0-4) /hpf Urine WBC (0-5) /hpf Ur Epithelial Cells (0-5) /lpf Urine Bacteria (Negative) Urine Mucus (None Prsent) COVID-19 Eval Order SARS-CoV-2 (PCR) (Negative) Hepatitis A IgM Ab Hep Bs Antigen (Neg) Hep B Core IgM Ab Hepatitis C Antibody (Neg) Diagnostic Findings Gallbladder Ultrasound 08/10/20 13:18 ULTRASOUND RIGHT UPPER QUADRANT ABDOMEN CLINICAL HISTORY: Upper abdominal pain. COMPARISON STUDY: No priors. TECHNIQUE: Real-time, grayscale, and color flow sonography of the right upper quadrant of the abdomen was performed. Images are reviewed in the transverse and longitudinal planes. FINDINGS: Liver: The liver is enlarged and demonstrates heterogeneously increased echotexture consistent with hepatic steatosis. Note that this degrades acoustic penetration of the liver. Fatty sparing is seen adjacent to gallbladder fossa. There is no intrahepatic biliary ductal dilatation. The main portal vein is patent. Gallbladder: A shadowing calculus is seen in the region the gallbladder neck. The gallbladder is mildly distended. There is no gallbladder wall thickening or pericholecystic fluid. A sonographic Armendariz's sign is reportedly absent. The common bile duct measures 0.4 cm in diameter. Pancreas: Visualized portions of the pancreatic head and body are normal in appearance. Right kidney: Survey images of the right kidney demonstrate normal size and echotexture. There is no hydronephrosis. Ascites: None. IMPRESSION: 1. The gallbladder is mildly distended and there is a shadowing calculus in the region of the gallbladder neck. There is no definitive sonographic evidence of acute cholecystitis at this time. If there is strong clinical concern for acute cholecystitis a nuclear hepatobiliary scan could be considered. 2. There is no intra or extrahepatic biliary ductal dilatation. 3. Hepatomegaly and hepatic steatosis. ACT 112: Negative or not required by law. Electronically signed by: Uriel Jaime M.D. 08/10/2020 3:30 PM PG Care Time/CCT Total # of Minutes Spent Total Time Spent with Patient: Total time spent is greater than 50% in coordination of care (as documented) at patient's floor/unit and/or counseling patient: Coding Level of Care Code 90891 Subseq Hosp Care Lvl 3 Diagnoses Cholelithiasis K80.20 Biliary obstruction: without biliary obstruction Cholecystitis presence: without cholecystitis Cholelithiasis location: gallbladder Abnormal finding on urinalysis R82.90 Hypertension I10 Morbid obesity E66.01 GERD (gastroesophageal reflux disease) K21.9 Depression F32.9 (1) Cholelithiasis Biliary obstruction: without biliary obstruction Cholecystitis presence: without cholecystitis Cholelithiasis location: gallbladder Qualified Code(s): K80.20 - Calculus of gallbladder without cholecystitis without obstruction
[2020-08-11 11:15] LABS: Hepatitis B Surf Ag Rflx Conf Neg (Neg)
[2020-08-11 11:43] LABS: Hepatitis C IgG 13Yrs+Old_Rflx Neg (Neg)
[2020-08-11] MEDS: FAMOTIDINE 20 MG in SYRINGE 3 ML IV SCH (12:55)
[2020-08-11] MEDS ORDERED: cefTRIAXone SODIUM 2,000 MG in DEXTROSE 5% 50 ML IV SCH (13:00)
[2020-08-11 13:13] LABS: Estimated Average Glucose 105 mg/dl; Hemoglobin A1C 5.3 % (4.5-5.6)
--- NOTE | 2020-08-11 14:53 | XRay Report ---
XR chest 1V portable HISTORY: 19 years-old Female pre-op acute right upper quadrant abdominal pain with nausea and vomiti ng COMPARISON: Right upper quadrant abdominal ultrasound 08/10/2020 TECHNIQUE: Portable AP view of the chest FINDINGS: Hypoinflation with bronchovascular crowding. The cardiomediastinal and hilar silhouettes are otherwis e unremarkable. No pneumothorax, pleural effusion, airspace consolidation or overt pulmonary edema. B ones appear grossly intact. IMPRESSION: Hypoinflation without acute process. ACT 112: Negative or not required by law. The above report was generated using voice recognition software. It may contain grammatical, syntax o r spelling errors. Electronically signed by: Bo Taylor M.D. 08/11/2020 2:52 PM
[2020-08-11] MEDS ORDERED: MoRPHine SULFATE 2 MG/ML CARP ONE (15:47)
--- NOTE | 2020-08-11 16:45 | Nuclear Medicine Report ---
NM hepatobiliary CLINICAL HISTORY: 19 years-old Female with abd pain. Acute right upper quadrant abdominal pain with cholelithiasis TECHNIQUE: Sequential anterior abdominal images were obtained through 60 minutes following the intra venous administration of 5.3 mCi of technetium-99m Choletec. 2 mg morphine was also administered. COMPARISON: Right upper quadrant abdominal ultrasound 08/10/2020 FINDINGS: There is prompt, uniform accumulation of the tracer by the liver. The gallbladder is not visualized a t 60 minutes. Intravenous morphine was then administered. The technologist reports that the patient w as unable to lay supine for the additional 30 minutes. There is normal filling of the common bile wali t with tracer excretion into the proximal small bowel. Moderate enterogastric reflux. A static 90 min council postmorphine image was then obtained. No gallbladder activity identified on the delayed image. IMPRESSION: 1. Nonvisualization of the gallbladder suggestive of cystic duct obstruction. 2. No evidence of common bile duct obstruction. ACT 112: Negative or not required by law. The above report was generated using voice recognition software. It may contain grammatical, syntax o r spelling errors. Electronically signed by: Bo Taylor M.D. 08/11/2020 4:44 PM
[2020-08-11] MEDS ORDERED: PIPERACILL/TAZOBAC CONSULT ACTIVE PRN (18:15)
[2020-08-11 18:23] LABS: Appearance Urine Clear (Clear); Bacteria Urine Automated Negative (Negative); Bilirubin Urine Negative (Negative); Blood Urine 3+ (Negative); Color Urine Orange; Glucose Urine UA Negative (Negative); Ketones Urine 1+ (Negative); Leukocyte Esterase Urine Negative (Negative); Nitrite Urine Negative (Negative); Protein Urine Negative (Negative); RBC Urine Automated >30 /hpf (0-4); Specific Gravity Urine 1.021 (1.000-1.030); Urobilinogen Urine Negative (Negative)
[2020-08-11] MEDS ORDERED: PIPERACILLIN/TAZOBACTAM 4.5 GM in DEXTROSE 5% 100 ML IV ONE (18:30)
[2020-08-11] MEDS: MoRPHine SULFATE 2 MG/ML CARP IV PRN (19:54)
[2020-08-11] MEDS: QUEtiapine FUMARATE 200 MG TAB PO SCH (21:43)
[2020-08-12] MEDS: PIPERACILLIN/TAZOBACTAM 4.5 GM in DEXTROSE 5% 100 ML IV SCH ×4 (00:06→23:37)
[2020-08-12] MEDS: MoRPHine SULFATE 2 MG/ML CARP IV PRN ×2 (00:07→07:33)
[2020-08-12] MEDS: HYDROmorphone INJ 0.5 MG/0.5 ML SYR IV PRN (03:34)
[2020-08-12] MEDS: SODIUM CHLORIDE 0.9% 1000ML 1,000 ML IV SCH ×3 (04:03→15:18)
[2020-08-12 06:16] LABS: Hematocrit (blood only) 37.5 % (37-47); Mean Corpuscular Hemoglobin 29.1 pg (25-34); Mean Platelet Volume 10.6 fL (7.4-10.4); Platelet Count 308 K/uL (130-400); RDW Coefficient of Variation 14.3 % (11.5-14.5); RDW Standard Deviation 47.7 fL (36.4-46.3); Red Blood Count 4.12 M/uL (4.2-5.4); White Blood Count 12.53 K/uL (4.8-10.8)
[2020-08-12 06:41] LABS: Albumin Level 2.5 gm/dl (3.4-5.0); BUN Creatinine Ratio 7.6 (10-20); Bilirubin Direct 0.3 mg/dl (0-0.2); Calcium 8.8 mg/dl (8.5-10.1); Creatinine Clr Calc Pharmacy 187.3 ml/min; Est GFR (African American) 146.7 ml/min; Est GFR (Non-African American) 126.5 ml/min; Magnesium 1.9 mg/dl (1.8-2.4); Potassium 3.5 mmol/L (3.5-5.1)
[2020-08-12 06:45] LABS: Bilirubin,Total 0.7 mg/dl (0.2-1); Phosphorus 2.6 mg/dl (2.5-4.9); Total Protein 6.7 gm/dl (6.4-8.2)
--- NOTE | 2020-08-12 07:00 | History & Physical Bridge Note ---
Date of Service August 12, 2020 History & Physical Bridge Note I have examined the patient, reviewed the History & Physical and in the interval since the performance of the History & Physical I have noted the following changes of clinical significance: no changes noted
[2020-08-12] MEDS: FAMOTIDINE 20 MG in SYRINGE 3 ML IV SCH (07:33)
[2020-08-12] MEDS ORDERED: GLYCOPYRROLATE 0.2 MG/ML VIAL ONE ×2 (09:37→11:45)
[2020-08-12] MEDS ORDERED: PROPOFOL IV EMULSION 10 MG/ML 20 ML VIAL IV ONE (09:37)
[2020-08-12] MEDS ORDERED: MIDAZOLAM HCL 1 MG/ML 2ML VIAL ONE (09:37)
[2020-08-12] MEDS ORDERED: ONDANSETRON INJ 2 MG/ML 2 ML VIAL ONE ×2 (09:37→11:23)
[2020-08-12] MEDS ORDERED: NEOSTIGMINE METHYLSULFATE 1 MG/ML 10ML VIAL ONE (09:37)
[2020-08-12] MEDS ORDERED: LIDOCAINE 2% 2 ML VIAL/AMP(20MG/ML) INFIL ONE (09:37)
[2020-08-12] MEDS ORDERED: DEXAMETHASONE SOD INJ 4 MG/ML VIAL ONE (09:37)
[2020-08-12] MEDS ORDERED: fentaNYL citrate 100 MCG/2 ML VIAL ONE ×2 (09:38→11:23)
[2020-08-12] MEDS ORDERED: ePHEDrine sulfate 50 MG/ML AMP IV PRN ×2 (09:44→10:35)
[2020-08-12] MEDS ORDERED: ATROPINE SULFATE 0.1 MG/ML 10ML SYR IV PRN ×2 (09:44→10:35)
[2020-08-12] MEDS ORDERED: ONDANSETRON INJ 2 MG/ML 2 ML VIAL IV PRN ×2 (09:44→10:35)
[2020-08-12] MEDS ORDERED: fentaNYL citrate 100 MCG/2 ML VIAL IV PRN ×2 (09:44→10:35)
--- NOTE | 2020-08-12 09:44 | Anesthesiology Consultation ---
Date of Service August 12, 2020 Assessment & Plan (1) Encounter for pre-operative examination: Chart Review Chart Review: entry level initiated History Surgery Operation Date: 08/12/20 11:55 Proposed Procedures p Laparoscopic Cholecystectomy - Manuel Antunez MD, FACS Height/Weight Height: 5 ft 6 in Weight: 132.449 kg Allergies Allergy/AdvReac Type Severity Reaction Status Date / Time nut - unspecified Allergy Severe Hives Unverified 08/10/20 13:25 mirtazapine [From Remeron] AdvReac Severe angry/viole Unverified 08/10/20 13:25 nt gabapentin AdvReac suicidal Unverified 08/10/20 13:25 Medications Home Medications Medication Instructions Recorded Confirmed Last Taken ascorbic acid (vitamin C) [Vitamin 500 mg PO BID 08/10/20 08/10/20 08/10/20 C] atenolol [Tenormin] 100 mg PO QAM 08/10/20 08/10/20 08/10/20 diazepam [Valium] 5 mg PO BID 08/10/20 08/10/20 08/10/20 duloxetine [Cymbalta] 80 mg PO QAM 08/10/20 08/10/20 08/10/20 ferrous sulfate 325 mg PO QAM 08/10/20 08/10/20 08/10/20 fluticasone propionate [Flonase 2 spray INTRANASAL QAM 08/10/20 08/10/20 08/10/20 Allergy Relief] magnesium oxide 400 mg PO QAM 08/10/20 08/10/20 08/10/20 ondansetron 4 mg PO Q6H PRN 08/10/20 08/10/20 08/10/20 11:45 quetiapine [Seroquel] 50 mg PO QAM 08/10/20 08/10/20 08/10/20 quetiapine [Seroquel] 200 mg PO HS 08/10/20 08/10/20 08/09/20 omeprazole 20 mg PO DAILY 08/11/20 08/11/20 Unknown Active Medications Generic Name Dose Route Start Last Admin Trade Name Freq PRN Reason Stop Dose Admin Ascorbic Acid 500 mg 08/10/20 21:41 08/11/20 08:30 Ascorbic Acid 500 Mg Tab PO 09/09/20 21:40 500 mg BID EDIN Administration Atenolol 100 mg 08/11/20 09:00 08/11/20 08:30 Atenolol 50 Mg Tablet PO 09/10/20 08:59 100 mg QAM EDIN Administration Diazepam 5 mg 08/10/20 21:41 08/11/20 21:42 Diazepam 5 Mg Tablet PO 09/09/20 21:40 5 mg BID EDIN Administration Duloxetine HCl 80 mg 08/11/20 09:00 08/11/20 08:30 Duloxetine Hcl 20 Mg Cap PO 09/10/20 08:59 80 mg QAM EDIN Administration Ferrous Sulfate 325 mg 08/11/20 09:00 08/11/20 08:30 Ferrous Sulfate 325 Mg Tab PO 09/10/20 08:59 325 mg QAM EDIN Administration Fluticasone Propionate 2 sprays 08/11/20 09:00 08/11/20 08:29 Fluticasone Propionate Na Spr 16 Gm Btl NA 09/10/20 08:59 2 sprays QAM EDIN Administration Hydromorphone HCl 0.5 mg 08/10/20 21:41 08/12/20 03:34 Hydromorphone Inj 0.5 Mg/0.5 Ml Syr IV 08/24/20 21:40 0.5 mg Q6H PRN Administration Pain Sodium Chloride 1,000 mls @ 100 mls/hr 08/10/20 21:41 08/12/20 04:03 Nss 1000ml IV 09/09/20 21:40 100 mls/hr .Q10H EDIN Administration Famotidine 20 mg/ Syringe 5 mls @ 2.5 mls/min 08/11/20 12:00 08/12/20 07:33 IV 09/10/20 11:59 2.5 mls/min DAILY EDIN Administration Piperacillin Sod/Tazobactam 120 mls @ 30 mls/hr 08/12/20 00:00 08/12/20 07:33 Sod 4.5 gm/ Dextrose IV 08/22/20 00:00 30 mls/hr Q8H EDIN Administration Protocol Magnesium Oxide 400 mg 08/11/20 09:00 08/11/20 08:30 Magnesium Oxide 400 Mg Tab PO 09/10/20 08:59 400 mg QAM EDIN Administration Morphine Sulfate 2 mg 08/11/20 15:48 08/12/20 07:33 Morphine Sulfate 2 Mg/Ml Carp IV 08/25/20 15:47 2 mg Q4H PRN Administration Pain Ondansetron HCl 4 mg 08/10/20 21:41 08/11/20 19:53 Ondansetron Inj 2 Mg/Ml 2 Ml Vial IV 09/09/20 21:40 4 mg Q6H PRN Administration Nausea Quetiapine Fumarate 50 mg 08/11/20 09:00 08/11/20 08:30 Quetiapine Fumarate 25 Mg Tablet PO 09/10/20 08:59 50 mg QAM EDIN Administration Quetiapine Fumarate 200 mg 08/10/20 21:41 08/11/20 21:43 Quetiapine Fumarate 200 Mg Tab PO 09/09/20 21:40 200 mg HS EDIN Administration NPO Date Last Intake of Fluids: 08/11/20 Date Last Intake of Solids: 08/11/20 Past Medical History Medical History Depression Hypertension Morbid obesity POTS (postural orthostatic tachycardia syndrome) Social History Smoking Status: Never smoker Hx Alcohol Use: No Hx Substance Use: No Physical Exam Vital Signs Last Vital Signs Temp 98.8 F 08/12/20 07:59 Pulse 78 08/12/20 07:59 Resp 18 08/12/20 07:59 BP 108/73 08/12/20 07:59 Pulse Ox 98 08/12/20 07:59 Testing Laboratory Results 08/12/20 05:50 08/12/20 05:50 Hemoglobin A1c 5.3 % (4.5-5.6) 08/11/20 06:22 Urine Color [place] 08/11/20 17:30 Urine Appearance Clear (Clear) 08/11/20 17:30 Urine pH 7.0 (4.5-7.5) 08/11/20 17:30 Ur Specific [place] 1.021 (1.000-1.030) 08/11/20 17:30 Urine Protein Negative (Negative) 08/11/20 17:30 Urine Glucose (UA) Negative (Negative) 08/11/20 17:30 Urine Ketones 1+ (Negative) H 08/11/20 17:30 Urine Nitrite Negative (Negative) 08/11/20 17:30 Ur Leukocyte Esterase Negative (Negative) 08/11/20 17:30 Urine WBC (Auto) 1-5 /hpf (0-5) 08/11/20 17:30 Urine RBC (Auto) >30 /hpf (0-4) H 08/11/20 17:30 U Hyaline Cast (Auto) 1-5 /lpf (0-5) 08/11/20 17:30 U Epithel Cells (Auto) 10-20 /lpf (0-5) H 08/11/20 17:30 Urine Bacteria (Auto) Negative (Negative) 08/11/20 17:30 Urine RBC >30 /hpf (0-4) H 08/10/20 18:25 Urine WBC >30 /hpf (0-5) H 08/10/20 18:25 Ur Epithelial Cells >30 /lpf (0-5) H 08/10/20 18:25 08/10/20 18:25 Urine Culture - Preliminary Urine,Clean Catch Pin-point growth present, reincubating. Electrocardiogram Date: 08/10/20 Normal sinus rhythm, rate 79 bpm Nonspecific T wave abnormality Abnormal ECG When compared with ECG of 10-AUG-2020 13:36, (unconfirmed) No significant change was found Confirmed by Kevin Kam ([id number]) on 08/10/2020 3:31:55 PM Chest X-Ray Date: 08/11/20 IMPRESSION: Hypoinflation without acute process.
[2020-08-12] MEDS ORDERED: BUPIVACAINE 0.5 % 5 MG/1 ML MPF 30ML VIAL ONE (09:55)
[2020-08-12] MEDS: ATENOLOL 50 MG TABLET PO SCH (10:02)
[2020-08-12] MEDS: QUEtiapine FUMARATE 25 MG TABLET PO SCH (10:03)
[2020-08-12] MEDS: diazePAM 5 MG TABLET PO SCH ×2 (10:03→20:24)
[2020-08-12] MEDS: DULoxetine HCL 20 MG CAP PO SCH (10:03)
[2020-08-12] MEDS: FLUTICASONE PROPIONATE NA SPR 16 GM BTL SCH (10:03)
[2020-08-12] MEDS: PANTOprazole 40 MG TAB PO SCH (10:03)
[2020-08-12] MEDS ORDERED: SCOPOLAMINE 1 MG TDSY TD ONE ×2 (10:31→10:36)
[2020-08-12] MEDS ORDERED: ESMOLOL HCL INJ 10 MG/ML 10ML VIAL IV ONE (11:27)
[2020-08-12] MEDS ORDERED: PHENYLEPHRINE 100MCG/ML 5ML SYR ONE (11:27)
[2020-08-12] MEDS ORDERED: METOPROLOL TARTRATE 1 MG/ML VIAL IV ONE (11:42)
[2020-08-12] MEDS ORDERED: ROCURONIUM BROMIDE 10 MG/ML 5 ML VIAL IV ONE (11:45)
[2020-08-12] MEDS ORDERED: LARYING-O-JET KIT (LTA) ONE (11:45)
--- NOTE | 2020-08-12 12:06 | Post Operative Brief Note ---
PG Immediate Post Op with CF Date of Surgery August 12, 2020 Pre & Post Diagnosis Operation Date: 08/12/20 11:55 Pre-Op Diagnosis: Cholelithiasis Post-Op Diagnosis: Cholelithiasis, severe acute necrotizing cholecystitis, chronic adhesions I identified the patient and participated in the time-out.: Yes Procedure Operation Date: 08/12/20 11:55 Actual Procedures p Laparoscopic Cholecystectomy(Not Applicable) - Manuel Antunez MD, FACS Surgeon Manuel Antunez MD, FACS Printing Supervisor nurses Estimated Blood Loss 10 Findings Consistent with Post-Op Diagnosis Specimens Specimen Description: A. gallbladder
--- NOTE | 2020-08-12 12:37 | Operative Report (OR) ---
DATE OF PROCEDURE: 08/12/2020 NAME OF PROCEDURE: Laparoscopic cholecystectomy. STAFF SURGEON: Manuel Antunez MD ANESTHESIA: General. DESCRIPTION OF PROCEDURE: The patient was brought in the operating room and placed on the operating table in supine position. Her abdomen was prepped and draped in the usual fashion. The anesthesiolo gist did have some difficulty with IV access, which they were able to overcome. The patient is signif icantly morbidly obese. Using 0.5% plain Marcaine, the skin above the umbilicus was anesthetized car rying dissection deep down into the subcutaneous tissue, identifying the fascia, placing a Veress nee dle producing pneumoperitoneum. The patient was placed in reverse Trendelenburg position and rotated to the left. Three 5 mm ports were placed, one cephalad and two laterally. The gallbladder was kaycee ewhat difficult to retract. There were significant acute and chronic adhesions to the gallbladder. It was severely inflamed consistent with necrotizing cholecystitis. Dissection was carried out the p bhupendra hepatis taking down adhesions. There was a stone in the neck of the gallbladder. I was able to retract the gallbladder and identify the cystic duct and cystic artery. These were clipped and iraheta sected and the gallbladder dissected away from the liver with some difficulty secondary to the severe inflammation. After appropriate hemostasis and irrigation, the gallbladder was placed in an Endobag . It was then removed through the umbilical site with some difficulty because of the size of the gal lbladder, depth of the wound, and I did have to make the fascial defect bigger to remove the gallblad esther. At this point, fascial defect was closed using 0 PDS suture. Subcutaneous tissue was reapproxi mated using 2-0 plain suture and the skin and all incisions closed using subcuticular 4-0 Monocryl wi th Dermabond. The patient was transferred to recovery room in stable condition. Job ID: [id number]
[2020-08-12] MEDS ORDERED: PROMETHAZINE HCL 12.5 MG in SODIUM CHLORIDE 0.9% 50 ML IV PRN (13:27)
[2020-08-12] MEDS ORDERED: PROMETHAZINE HCL 25 MG in SODIUM CHLORIDE 0.9% 50 ML IV PRN (13:27)
--- NOTE | 2020-08-12 14:58 | Anesthesiology Progress Note ---
Date of Service August 12, 2020 Anesthesia Post Procedure Vital Signs Vital Signs: Temp Pulse Pulse Resp BP BP Pulse Ox 08/12/20 14:36 36.6 C 93 H 20 124/82 94 08/12/20 14:07 36.4 C L 103 H 20 115/68 91 08/12/20 13:44 08/12/20 13:37 36.4 C L 88 19 118/80 91 08/12/20 13:20 91 H 18 147/76 H 96 08/12/20 13:10 36.2 C L 87 20 130/68 98 08/12/20 13:00 97 H 22 137/71 94 08/12/20 12:50 90 22 138/73 95 08/12/20 12:40 96 H 20 152/69 H 94 08/12/20 12:30 96 H 24 131/70 95 08/12/20 12:26 36.1 C L 96 H 24 108/71 95 08/12/20 09:56 36.6 C 103 H 18 111/85 95 08/12/20 07:59 37.1 C 78 18 108/73 98 08/11/20 22:37 37.2 C 100 H 16 117/75 92 Pulse Ox 08/12/20 14:36 08/12/20 14:07 08/12/20 13:44 91 08/12/20 13:37 08/12/20 13:20 08/12/20 13:10 08/12/20 13:00 08/12/20 12:50 08/12/20 12:40 08/12/20 12:30 08/12/20 12:26 08/12/20 09:56 08/12/20 07:59 08/11/20 22:37 Pain Intensity Anterior Abdomen: Pain Intensity: 2 Transfer of Care Handoff Completed per policy Notes Mental Status: alert / awake / arousable and participated in evaluation Patient Amnestic to Procedure: Yes Nausea / Vomiting: adequately controlled Pain: adequately controlled Airway Patency, RR, SpO2: stable & adequate BP & HR: stable & adequate Hydration State: stable & adequate Anesthetic Complications: no major complications apparent and Pt Satisfied with anesthetic care
[2020-08-12 15:17] LABS: Hepatitis A Antibody IgM NON-REACTIVE (NON-REACTIVE); Hepatitis B Core Antibody IgM NON-REACTIVE (NON-REACTIVE)
[2020-08-12] MEDS ORDERED: CHECK SCOPOLAMINE PATCH PLACEMENT SCH (16:00)
--- NOTE | 2020-08-12 16:03 | Hospitalist Progress Note ---
Date of Service August 12, 2020 Assessment & Plan (1) Cholelithiasis: Patient's history, lab work, and ultrasound suggest possible cholecystitis. - S/p laparoscopic cholecystectomy with Dr. Antunez on 08/12. - Will monitor recovery; post-op care per surgical team. (2) Abnormal finding on urinalysis: UA with 4+ ketones, 3+ blood, >30 RBC, >30 WBC, >30 epi, 2+ bacteria. - On Zosyn for gallbladder. (3) Hypertension: BP is 115/75 today. - Continue atenolol 100mg daily (4) Morbid obesity: BMI 47 - - Encourage weight loss/dietary modifications/follow up with PCP (5) GERD (gastroesophageal reflux disease): - Continue PPI (6) Depression: Patient is on multiple psych meds, including Seroquel, Cymbalta, and Valium. - Continue home meds - Behavioral health has followed along. Per their note from 08/11, [facility]. Will be allowed to go home instead of to [facility] on discharge. (7) DVT prophylaxis: Heparin 5,000 units SQ Q12h Admission and Anticipated Discharge Date Admission Date: August 11, 2020 Subjective Seen post-operatively. Still under effects of anesthesia, but reported only mild abdominal pain and no other major issues. Reports no fevers/chills, chest pain, shortness of breath, nausea, or vomiting. Physical Exam Constitutional: WD/WN, vitals as above + lethargic Eyes: EOM intact bilaterally; no conjunctival abnormality ENMT: external ear and nose normal, oropharynx normal Neck: trachea midline, no thyromegaly normal visual inspection Respiratory: normal respiratory effort, lungs clear to auscultation no respiratory distress Cardiovascular: RRR, no murmur, no edema Gastrointestinal (Abdomen): Inspection/Auscultation: abdomen normal to inspection; abdomen not distended Musculoskeletal: no cyanosis or clubbing, extremities motor strength 5/5 Skin: no rashes, warm and dry Neurologic: moves all extremities and awake Psychiatric: Orientation: alert, oriented to person and cooperative Results & Data Results & Data ([place]) Vital Signs (Past 12 Hours) Vital Signs Temp Pulse Pulse Resp BP Pulse Ox Pulse Ox 08/12/20 15:26 36.3 C L 89 19 113/76 92 08/12/20 14:36 36.6 C 93 H 20 124/82 94 08/12/20 14:07 36.4 C L 103 H 20 115/68 91 08/12/20 13:44 91 08/12/20 13:37 36.4 C L 88 19 118/80 91 08/12/20 13:20 91 H 18 147/76 H 96 08/12/20 13:10 36.2 C L 87 20 130/68 98 08/12/20 13:00 97 H 22 137/71 94 08/12/20 12:50 90 22 138/73 95 08/12/20 12:40 96 H 20 152/69 H 94 08/12/20 12:30 96 H 24 131/70 95 08/12/20 12:26 36.1 C L 96 H 24 108/71 95 08/12/20 09:56 36.6 C 103 H 18 111/85 95 08/12/20 07:59 37.1 C 78 18 108/73 98 PG Care Time/CCT Total # of Minutes Spent Total Time Spent with Patient: Total time spent is greater than 50% in co ordination of care (as documented) at patient's floor/unit and/or counseling patient: Coding Level of Care Code 08003 Subseq Hosp Care Lvl 2 Diagnoses Cholelithiasis K80.20 Biliary obstruction: without biliary obstruction Cholecystitis presence: without cholecystitis Cholelithiasis location: gallbladder Abnormal finding on urinalysis R82.90 Hypertension I10 Morbid obesity E66.01 GERD (gastroesophageal reflux disease) K21.9 Depression F32.9 DVT prophylaxis Z29.9 (1) Cholelithiasis Biliary obstruction: without biliary obstruction Cholecystitis presence: without cholecystitis Cholelithiasis location: gallbladder Qualified Code(s): K80.20 - Calculus of gallbladder without cholecystitis without obstruction
[2020-08-12] MEDS: oxyCODONE HCL IR 5 MG TAB (IMMEDIATE RELEASE) PO PRN ×2 (18:21→23:39)
[2020-08-12] MEDS: QUEtiapine FUMARATE 200 MG TAB PO SCH (20:24)
[2020-08-12] MEDS: HEPARIN SOD 5,000 UNIT/0.5 ML VIAL SQ SCH (20:24)
[2020-08-12] MEDS: ASCORBIC ACID 500 MG TAB PO SCH (20:24)
[2020-08-13] MEDS ORDERED: POLYETHYLENE (MIRALAX) 17 GM PACK PO PRN (00:39)
[2020-08-13] MEDS: SODIUM CHLORIDE 0.9% 1000ML 1,000 ML IV SCH ×2 (01:15→14:09)
[2020-08-13 06:22] LABS: Basophils # (auto) 0.01 K/uL (0-0.2); Basophils % (auto) 0.1 %; Hematocrit (blood only) 36.8 % (37-47); Hemoglobin 11.8 g/dL (12.0-16.0); Immature Granulocytes # (auto) 0.04 K/uL (0.00-0.02); Immature Granulocytes % (auto) 0.3 %; Lymphocytes # (auto) 1.47 K/uL (1.2-3.4); Lymphocytes % (auto) 10.5 %; Mean Corpuscular Hemoglobin 29.1 pg (25-34); Mean Corpuscular Hgb Conc 32.1 g/dL (32-36); Mean Corpuscular Volume 90.6 fL (80-100); Mean Platelet Volume 10.9 fL (7.4-10.4); Monocytes # (auto) 1.35 K/uL (0.11-0.59); Monocytes % (auto) 9.6 %; Neutrophils # (auto) 11.19 K/uL (1.4-6.5); Neutrophils % (auto) 79.5 %; Platelet Count 351 K/uL (130-400); RDW Standard Deviation 46.2 fL (36.4-46.3); Red Blood Count 4.06 M/uL (4.2-5.4); White Blood Count 14.06 K/uL (4.8-10.8)
--- NOTE | 2020-08-13 06:36 | Surgery Progress Note ---
Date of Service August 13, 2020 Assessment & Plan (1) S/P laparoscopic cholecystectomy: Patient with necrotizing cholecystitis She seems to be doing very well Would continue IV antibiotics while in the hospital and then p.o. antibiotics for 5 days Can follow-up in the surgical office in 2 to 3 weeks Patient can be discharged when medically stable Admission and Anticipated Discharge Date Admission Date: August 11, 2020 Results & Data ([facility]) Vital Signs (Past 12 Hours) Vital Signs Temp Pulse Resp BP Pulse Ox 08/13/20 06:10 36.6 C 85 18 98/60 L 91 08/12/20 23:34 95 08/12/20 23:25 36.3 C L 102 H 16 109/72 88 L 08/12/20 18:52 36.7 C 85 18 111/73 92 PG Care Time/CCT Total # of Minutes Spent Total Time Spent with Patient: Total time spent is greater than 50% in coordination of care (as documented) at patient's floor/unit and/or counseling patient: Coding Level of Care Code None Diagnoses S/P laparoscopic cholecystectomy Z90.49
[2020-08-13 06:59] LABS: Alanine Aminotransferase 63 U/L (12-78); Albumin Level 2.5 gm/dl (3.4-5.0); Aspartate Aminotransferase 20 U/L (15-37); BUN Creatinine Ratio 10.4 (10-20); Blood Urea Nitrogen 6 mg/dl (7-18); Carbon Dioxide 27 mmol/L (21-32); Chloride 110 mmol/L (98-107); Est GFR (African American) > 150.0 ml/min; Est GFR (Non-African American) 134.2 ml/min; Glucose 95 mg/dl (70-99); Potassium 3.9 mmol/L (3.5-5.1); Sodium 141 mmol/L (136-145)
[2020-08-13 07:06] LABS: Albumin Globulin Ratio 0.6 (0.9-2); Alkaline Phosphatase 87 U/L (45-117); Bilirubin,Total 0.4 mg/dl (0.2-1); Globulin 4.4 gm/dl (2.5-4.0); Phosphorus 3.5 mg/dl (2.5-4.9); Total Protein 6.9 gm/dl (6.4-8.2)
[2020-08-13 07:32] LABS: Bilirubin Direct 0.1 mg/dl (0-0.2)
[2020-08-13] MEDS: PIPERACILLIN/TAZOBACTAM 4.5 GM in DEXTROSE 5% 100 ML IV SCH (09:25)
[2020-08-13] MEDS: diazePAM 5 MG TABLET PO SCH (09:25)
[2020-08-13] MEDS: QUEtiapine FUMARATE 25 MG TABLET PO SCH (09:25)
[2020-08-13] MEDS: MAGNESIUM OXIDE 400 MG TAB PO SCH (09:26)
[2020-08-13] MEDS: FAMOTIDINE 20 MG in SYRINGE 3 ML IV SCH (09:26)
[2020-08-13] MEDS: FLUTICASONE PROPIONATE NA SPR 16 GM BTL SCH (09:26)
[2020-08-13] MEDS: FERROUS SULFATE 325 MG TAB PO SCH (09:26)
[2020-08-13] MEDS: PANTOprazole 40 MG TAB PO SCH (09:26)
[2020-08-13] MEDS: ATENOLOL 50 MG TABLET PO SCH (09:26)
[2020-08-13] MEDS: ASCORBIC ACID 500 MG TAB PO SCH (09:26)
[2020-08-13] MEDS: DULoxetine HCL 20 MG CAP PO SCH (09:26)
[2020-08-13] MEDS: HEPARIN SOD 5,000 UNIT/0.5 ML VIAL SQ SCH (09:27)
[2020-08-13] MEDS: oxyCODONE HCL IR 5 MG TAB (IMMEDIATE RELEASE) PO PRN (13:06)
--- NOTE | 2020-08-13 17:21 | Discharge Summary ---
Date of Service August 13, 2020 Admission HPI Per Admitting Provider This is a 19-year-old female with past medical history of hypertension, morbid obesity, depression with a suicide attempt that presents from the [facility]'s complaining of abdominal pain. Patient is decent historian, and is accompanied by a field service representative from the [facility]. Patient tells me that she has had abdominal pain all day. This is bilateral upper quadrants, left worse than right. She is also had nausea vomiting and has not been able to tolerate any food or liquids since approximate 4 AM. She denies any chest pain or shortness of breath. She has had no further vomiting since she stopped trying to take p.o.'s. She was given Zofran earlier which did not help. Per documentation, patient had a history of a gallstone/gallbladder sludge and was previously scheduled to see someone for elective cholecystectomy but this not occur secondary to her psychiatric issues. At time of evaluation, the patient is a very flat affect does not appear to be in any distress. Principal Diagnosis Cholecystitis Discharge Exam Constitutional WD/WN, vitals as above + lethargic Eyes EOM intact bilaterally; no conjunctival abnormality ENMT external ear and nose normal, oropharynx normal Neck trachea midline, no thyromegaly normal visual inspection Respiratory normal respiratory effort, lungs clear to auscultation no respiratory distress Cardiovascular RRR, no murmur, no edema Gastrointestinal (Abdomen) Inspection/Auscultation: abdomen normal to inspection; abdomen not distended Musculoskeletal no cyanosis or clubbing, extremities motor strength 5/5 Skin no rashes, warm and dry Neurologic moves all extremities and awake Psychiatric Orientation: alert, oriented to person and cooperative Discharge Data Allergies Allergy/AdvReac Type Severity Reaction Status Date / Time nut - unspecified Allergy Severe Hives Unverified 08/10/20 13:25 mirtazapine [From Remeron] AdvReac Severe angry/viole Unverified 08/10/20 13:25 nt gabapentin AdvReac suicidal Unverified 08/10/20 13:25 Consultations 08/10/20 16:44 ED Decision to Admit Stat 08/10/20 21:41 Consult General Surgery Routine 08/10/20 21:56 Consult Behavioral Health Liaison Routine 08/11/20 14:08 Consult Behavioral Health Liaison Routine Procedures Performed Operation Date: 08/12/20 11:55 Actual Procedures p Laparoscopic Cholecystectomy(Not Applicable) - Manuel Antunez MD, FACS Ordered Studies 08/10/20 13:18 US gallbladder Stat Hospital Course (1) Cholelithiasis: Patient's history, lab work, and ultrasound suggest possible cholecystitis. - S/p laparoscopic cholecystectomy with Dr. Antunez on 08/12. - Pain almost entirely resolved by 08/13. Cleared for discharge by surgical team. Sent home with pain control and Augmentin per surgical team. (2) Abnormal finding on urinalysis: UA with 4+ ketones, 3+ blood, >30 RBC, >30 WBC, >30 epi, 2+ bacteria. - No major issues; any infection will be covered by abx. (3) Hypertension: BP is 115/75 today. - Continue atenolol 100mg daily (4) Morbid obesity: BMI 47 - - Encourage weight loss/dietary modifications/follow up with PCP (5) GERD (gastroesophageal reflux disease): - Continue PPI (6) Depression: Patient is on multiple psych meds, including Seroquel, Cymbalta, and Valium. - Continue home meds - Behavioral health has followed along. Per their note from 08/11, she was close to discharge from the [facility] anyhow. CM also worked with [employer] who cleared her (she was on a 201 at any rate). They brought belongings before her discharge. (7) DVT prophylaxis: Heparin 5,000 units SQ Q12h Total Time Total Time Spent Total Time Spent (In Minutes): 35 Discharge Plan Discharge Items Patient Disposition: Home - Self-Care Reason For Visit: ABD PAIN Discharge Diagnosis: Laparoscopic cholecystectomy Condition on Discharge: Good Activity: Per Instructions section Activity Comment: light activity for 4 weeks Lifting: No more than 10 pounds Bathing Comment: may shower; no tub soaks/pools Sexual Activity: When tolerated Exercise/Sports: Wait until after follow-up appointment Exercise Comment: wait 4 weeks Driving/Machine Use: no driving while taking narcotics for pain Non-emergency contact: Primary Care Provider and Surgeon Call non-emergency contact if: you have any medication questions, your symptoms worsen, your pain is not controlled, your pain is concerning for you, you have a fever, your temperature is above 101.5, your wound has increased redness, your wound has increased drainage and your wound pain has increased Follow-up/Referrals: Manuel Antunez MD, FACS [Physician] - 08/20/20 9:00 am Selam Casillas [Primary Care Provider] - Diet: Regular Addtl Attending Provider Instructions: SPECIAL CARE INSTRUCTIONS: * Cover incisions and change daily for comfort/drainage. * May use ibuprofen for pain as tolerated. * Expect some swelling and bruising. Call your doctor if: * Temperature above 101 degrees * Pain not relieved by pain medicine ordered * There is increased drainage or redness from any incision * You have any unanswered questions or concerns [phone]. FOLLOW UP VISIT: If not already scheduled, please call the office for a follow-up visit. OFFICE PHONE NUMBER: Dr. Antunez Office Pending Studies at Discharge: No Stand-Alone Forms: My Right Relevance, Smoking Cessation Medications and DC Order Prescriptions: New hydrocodone-acetaminophen 5-325 mg tablet 1 tab PO Q4H PRN (Reason: pain) Qty: 30 RF: 0 amoxicillin-pot clavulanate [Augmentin] 875-125 mg tablet 1 tab PO BID Qty: 10 RF: 0 hydrocodone-acetaminophen 5-325 mg tablet 1 tab PO Q4H PRN (Reason: pain) Qty: 30 RF: 0 amoxicillin-pot clavulanate [Augmentin] 875-125 mg tablet 1 tab PO BID Qty: 10 RF: 0 Continued quetiapine [Seroquel] 200 mg Tablet 200 mg PO HS RF: 0 atenolol [Tenormin] 25 mg Tablet 100 mg PO QAM RF: 0 ascorbic acid (vitamin C) [Vitamin C] 500 mg Tablet 500 mg PO BID RF: 0 ferrous sulfate 325 mg (65 mg iron) Tablet,Delayed Release (Dr/Ec) 325 mg PO QAM RF: 0 ondansetron 4 mg Tablet,Disintegrating 4 mg PO Q6H PRN (Reason: Nausea And Vomiting) RF: 0 fluticasone propionate [Flonase Allergy Relief] 50 mcg/actuation [place],Suspension 2 spray INTRANASAL QAM RF: 0 diazepam [Valium] 5 mg Tablet 5 mg PO BID RF: 0 duloxetine [Cymbalta] 20 mg Capsule,Delayed Release(Dr/Ec) 80 mg PO QAM RF: 0 quetiapine [Seroquel] 50 mg Tablet 50 mg PO QAM RF: 0 magnesium oxide 400 mg magnesium Tablet 400 mg PO QAM RF: 0 omeprazole 20 MG 20 mg PO DAILY RF: 0 Discharge Orders: Discharge Order (Routine); Ordered 08/13/20 Ordered By: Dami Merida/Other Patient Handouts: Cholecystectomy Laparoscopic Dc Admission Data Admit Date/Time: 08/11/20 12:48 Attending Provider: Dami Vinson Admit Provider: Blas Mauro Primary Care Provider: Selam Casillas Other Providers: Dami Vinson ; Blas Mauro ; Manuel Antunez Other Interventions: Discharge Summary Assessment (RN) Last Done: 08/13/20 13:36 Coding Level of Care Code D/C Day Management >30 mins Diagnoses Cholelithiasis K80.20 Biliary obstruction: without biliary obstruction Cholecystitis presence: without cholecystitis Cholelithiasis location: gallbladder Abnormal finding on urinalysis R82.90 Hypertension I10 Morbid obesity E66.01 GERD (gastroesophageal reflux disease) K21.9 Depression F32.9 DVT prophylaxis Z29.9
== END 2020-08-13 15:48 | disposition home or self-care (01) | DRG 418 ==
LOC: ED 12:19 → 3W 12:19 → SUATTDRO 17:16 → 3W 21:18